=== PATIENT | female | born 1945 | race Caucasian/White ===

== ENCOUNTER 2022-09-23 00:17 | Inpatient (IN) | payer MEDICARE, MEDICAID, SELFPAY ==
--- NOTE | 2022-09-23 04:27 | PC.ADMIT ---
Patient is a 76 year old Bhutanese speaking female arriving on the unit by EMS at 0030 from [facility]. Legal status is Section 12b. Patient is a resident at in a [facility] care facility in [facility] where she has presented as increasingly agitated and confused over the past several days. Staff at the LT facility reported patient made statements regarding SI, although details of such statements were not available on admission. Patient was brought to [facility] for SI with increased confusion and concern for possible UTI. UA labs were normal with no evidence of UTI. Patient has history of dementia. On arrival patient presented as disorganized with nonsensical speech at times. Patient was agitated and refused VS and assessments; unable to participate in most of admission process due to current mental status.
[2022-09-23 08:29] VITALS: BP 170/79; PULSE 77; RESP 18; TEMP 36.6; O2SAT 97
--- NOTE | 2022-09-23 11:02 | PC.NURSE ---
BP 170/79, Jesusita is asymptomatic. Admit last night, med rec complete and Dr. Jett notified. Awaiting ordered. Dr. Jett notified of bp 170/79, will recheck and notify
--- NOTE | 2022-09-23 11:09 | P.CONHOSP_ITS ---
History of Present Illness Data of Consult Service Date: 09/23/22 Primary Care Provider: Unknown Physician HPI Reason for consult: Admission H&P Pt is a 76-year-old female with a PMH significant for HLD, HTN, and unspecified dementia who is admitted to [facility] for increasing agitation and confusion the past 2 days and making passive SI statements to staff at her SNF. Medical consult for admission H&P. Patient with advanced dementia at baseline. Patient incapable of providing HPI or discussing PMH. Labs reviewed, largely unremarkable. Review of Systems Review of Systems: Unable to obtain due to patient's advanced dementia. [facility] Medical History Dementia Social History Household Members: Other Household Members Other:: residents of nursing facility Housing: Jail Do you presently have visiting nurse or other home services: No (Residential care facility/[facility]) Unable to assess alcohol history related to: Unable to respond Patient Tobacco Use Status: Tobacco use Unknown Use of substances other than those prescribed or required for medical reasons: Unknown Substance Use Type: Unknown Currently Displaying Signs/Symptoms of Drug Intoxication Withdrawal: No Advance Directives: No Advance Directives Information Provided: Yes Do you have thoughts of harming others: None Do you have a plan to hurt others: No Plan Patient : No Meds Allergies Allergy/AdvReac Type Severity Reaction Status Date / Time hydrochlorothiazide Allergy Unknown Unknown Verified 09/23/22 01:46 Penicillins Allergy Unknown Unknown Verified 09/23/22 01:47 sulfamethoxazole Allergy Unknown Unknown Verified 09/23/22 01:44 [From Bactrim] trimethoprim [From Bactrim] Allergy Unknown Unknown Verified 09/23/22 01:44 Active Medications: Current Medications Acetaminophen (Acetaminophen 325 Mg Tablet) 650 mg PO Q6H PRN PRN Reason: Headache/Pain Mild Scale (1-3) Al Hydroxide/Mg Hydroxide (Magnesium Hydrox/Alum Hydrox 30 Ml Oral.Susp) 30 ml PO Q6H PRN PRN Reason: Heartburn/Nausea Magnesium Hydroxide (Milk Of Magnesia 30 Ml Oral.Susp) 30 ml PO DAILY PRN PRN Reason: Constipation Trazodone HCl (Trazodone Hcl 25 Mg Halftab) 25 mg PO BEDTIME MRX1 PRN PRN Reason: Insomnia Home Medications Medication Instructions Recorded Confirmed Last Taken Type atorvastatin 40 mg tablet 40 mg QPM 09/23/22 09/23/22 Unknown History furosemide 20 mg tablet 20 mg PO DAILY 09/23/22 09/23/22 Unknown History lorazepam 1 mg tablet 1 mg PO BEDTIME 09/23/22 09/23/22 Unknown History losartan 50 mg tablet 50 mg PO DAILY 09/23/22 09/23/22 Unknown History melatonin 3 mg tablet 9 mg PO BEDTIME 09/23/22 09/23/22 Unknown History quetiapine 100 mg tablet 100 mg PO BEDTIME 09/23/22 09/23/22 Unknown History quetiapine 50 mg tablet 50 mg PO DAILY 09/23/22 09/23/22 Unknown History trazodone 50 mg tablet 25 mg PO BEDTIME 09/23/22 09/23/22 Unknown History Physical Exam Vital Signs and Narrative: Vital Signs: Last Vital Signs Temp 97.8 F 09/23/22 08:29 Pulse 77 09/23/22 08:29 Resp 18 09/23/22 08:29 BP 170/79 H 09/23/22 08:29 Pulse Ox 97 09/23/22 08:29 O2 Del Method Room Air 09/23/22 08:29 General: AOx1, confused, mostly cooperative, capable of following basic commands, no acute distress Resp: CTA bilaterally CVS: S1, S2, RRR GI: +BS, NT, no distention Skin: No rash Neuro: Cranial nerves II-XII grossly intact bilaterally. Motor grossly intact bilaterally Extremities: No edema Psych: Patient with advanced dementia, emotionally labile Results Labs 09/24/22 07:08 Assessment and Plan (1) Routine history and physical examination of adult: Status: Acute Plan Pt is a 76-year-old female with a PMH significant for HLD, HTN, and unspecified dementia who is admitted to [facility] for increasing agitation and confusion the past 2 days and making passive SI statements to staff at her SNF. Medical consult for admission H&P. Patient with advanced dementia at baseline. Patient incapable of providing HPI or discussing PMH. Mood disorder Plan as per Psychiatry HLD Continue statin HTN Continue furosemide Thank you for allowing us to participate in the care of this patient. Signing off at this time. Please let us know if there are any acute complaints or questions. Time Spent With Patient Time: Total time managing care of this patient today ____ minutes.
[2022-09-23 11:15] VITALS: BMI 26.8
[2022-09-23 12:11] VITALS: BP 177/91
--- NOTE | 2022-09-23 12:36 | HO.PSYADMNOT ---
HPI Date of Service: 09/23/22 Chief Complaint: F32.9, R41.9 Sources of Information: patient interviewed, chart reviewed and crisis/core team assessment reviewed HPI Narrative: pt is a 76 yo female on a Section 12, who lives at the [facility] care facility with a history of dementia, depression and some history of suicidal gestures, CKD, GERD, osteoporosis, who presents for some increasing agitation, confusion and SI statements with staff reporting that patient is a little bit more inconsistent behaviorally and concern for UTI. Patient is a poor historian with limited ability to engage in interview. Patient knows her name and date of . However when asked what year it was she said 790 and then said there was no baby doll... When asked if she had any suicidal thoughts she said yes because they are good people.. Patient continued to ramble making nonsensical statements. Past Psychiatric History: Reported history of depression; reported history of suicidal gestures Medical Evaluation Reviewed: Hospitalist Mandyal Pending [facility] Medical History (Updated 09/23/22 @ 16:50 by Jay Jett MD) Dementia Family History: Mother: History of mental illness; by suicide attempt when patient was 10 years old Father: History of alcohol abuse Other mental illness in the family Social History: Currently lives at [facility] Patient's daughter Erin Joe provided some history Substance History: Deferred Trauma History: Daughter reports extensive history of trauma Diagnostics Vital Signs (24Hr): Vital Signs - 24 hr 09/23/22 08:29 09/23/22 12:11 Temperature 97.8 F Pulse Rate 77 Respiratory Rate 18 Blood Pressure 170/79 H 177/91 H Pulse Oximetry 97 Oxygen Delivery Method Room Air BMI result Body Mass Index 26.8 Meds/Allergies Meds Home Medications Medication Instructions Recorded Confirmed Type atorvastatin 40 mg tablet 40 mg QPM 09/23/22 09/23/22 History furosemide 20 mg tablet 20 mg PO DAILY 09/23/22 09/23/22 History lorazepam 1 mg tablet 1 mg PO BEDTIME 09/23/22 09/23/22 History losartan 50 mg tablet 50 mg PO DAILY 09/23/22 09/23/22 History melatonin 3 mg tablet 9 mg PO BEDTIME 09/23/22 09/23/22 History quetiapine 100 mg tablet 100 mg PO BEDTIME 09/23/22 09/23/22 History quetiapine 50 mg tablet 50 mg PO DAILY 09/23/22 09/23/22 History trazodone 50 mg tablet 25 mg PO BEDTIME 09/23/22 09/23/22 History Allergies Allergies Allergy/AdvReac Type Severity Reaction Status Date / Time hydrochlorothiazide Allergy Unknown Unknown Verified 09/23/22 01:46 Penicillins Allergy Unknown Unknown Verified 09/23/22 01:47 sulfamethoxazole Allergy Unknown Unknown Verified 09/23/22 01:44 [From Bactrim] trimethoprim [From Bactrim] Allergy Unknown Unknown Verified 09/23/22 01:44 Mental Status Exam Mental Status Exam Narrative: Pt is alert; oriented only to self; behavior is cooperative, friendly, chatty but calm; patient is not in distress; dressed in casual attire and adequately groomed; mood is described as good and affect calm; eye contact appropriate; Speech is rambling at mostly a normal rate, volume and prosody; no psychomotor agitation/retardation present; thought process is disorganized; Thought content is on what seem to be random, various unrelated topics; no clear SI or HI. Patients insight and judgment impaired Assessment & Plan Assessment & Plan (1) Dementia: Status: Acute Code(s): F03.90 - Unspecified dementia, unspecified severity, without behavioral disturbance, psychotic disturbance, mood disturbance, and anxiety Plan pt is a 76 yo female on a Section 12, who lives at the chronic care facility with a history of dementia, depression and some history of suicidal gestures, CKD, GERD, osteoporosis, who presents for some increasing agitation, confusion and SI statements with staff reporting that patient is a little bit more inconsistent behaviorally and concern for UTI. Patient is a poor historian with limited ability to engage in interview. Patient knows her name and date of . However when asked what year it was she said 790 and then said there was no baby doll... When asked if she had any suicidal thoughts she said yes because they are good people.. Patient continued to ramble making nonsensical statements. -patient has dementia and is unable to participate in interview and remains on Section 12 since unable to understand CV -story writer's not sure what patient's baseline is however review of labs from sending facility (CBC, lytes, BUN/creatinine, UDS) are WNL including UA. -primary team to discuss with [facility] staff Plan: Section 12 B Q 15 minute checks Continue home medications Will monitor Primary team to discuss baseline with [facility] staff Patient educated on: diagnosis Informed Consent: does not understand Reason for continued inpatient stay Substantial Risk for: inability to function Statement Statement: I have reviewed the history and physical and performed a pertinent examination on my patient. No changes have occurred unless specified. If the History and Physical was not performed prior to admission, the Hospitalist's service will be consulted for completing the admission physical. Time Spent With Patient Time: Total time managing care of this patient today ____ minutes.
[2022-09-23] MEDS: QUEtiapine Fumarate 50 MG TABLET PO (13:33)
[2022-09-23] MEDS: Losartan Potassium 50 MG TABLET PO (13:33)
[2022-09-23 14:23] VITALS: BP 155/79
[2022-09-23 19:45] VITALS: BP 159/78; PULSE 82; RESP 16; TEMP 36.6; O2SAT 98
[2022-09-23] MEDS: Melatonin 3 MG TABLET 9 MG PO ×2 (20:20→20:21)
[2022-09-23] MEDS: Atorvastatin Calcium 40 MG TABLET PO (20:21)
[2022-09-23] MEDS: QUEtiapine Fumarate 100 MG TABLET PO (20:21)
[2022-09-23] MEDS: traZODone HCL 25 MG HALFTAB PO (20:21)
[2022-09-23] MEDS: LORazepam 1 MG TABLET PO (20:23)
[2022-09-24 07:51] LABS: Alanine Aminotransferase 23 U/L (0-31); Albumin Level 3.5 g/dL (3.5-5.0); Alkaline Phosphatase 120 U/L (39-117); Aspartate Amino Transferase 24 U/L (5-31); Bilirubin Total 0.6 mg/dL (0.0-1.0); Blood Urea Nitrogen 22 mg/dL (9-16); Calcium 9.7 mg/dL (8.4-10.2); Cholesterol 132 mg/dL; Creatinine Clr Calc Pharmacy 44.6; Estimated Glomerular Filt Rate > 60; Glucose Fasting 93 mg/dL (60-99); HDL Cholesterol 35 mg/dL; LDL Cholesterol Calculated 90 mg/dl; Total Protein 6.2 g/dL (6.5-8.0); Triglycerides 39 mg/dL
[2022-09-24 07:56] LABS: Estimated Average Glucose 103 mg/dL; Hemoglobin A1c % 5.2 %
[2022-09-24 08:09] VITALS: BP 154/73; PULSE 88; RESP 18; TEMP 36.5; O2SAT 98
[2022-09-24 08:22] LABS: Anion Gap 9 (12-20); Carbon Dioxide 25 mmol/L (22-29); Chloride 110 mmol/L (96-108); Potassium 4.1 mmol/L (3.3-5.1); Sodium 140 mmol/L (135-145)
[2022-09-24] MEDS: Furosemide 20 MG TABLET PO (09:18)
[2022-09-24] MEDS: Losartan Potassium 50 MG TABLET PO (10:26)
[2022-09-24] MEDS: QUEtiapine Fumarate 50 MG TABLET PO (10:26)
--- NOTE | 2022-09-24 12:12 | HO.PSYCHPN ---
Subjective Subjective Date of Service: 09/24/22 Reason For Visit: F32.9, R41.9 Interim History: Met with patient; discussed with team Patient remains pleasant but disorganized and unable to participate in interview. Took medications with encouragement; slept well, eating well. Constipated. Mental Status Exam Mental Status Exam Narrative: Pt is alert; oriented only to self; behavior is cooperative, friendly, chatty but calm; patient is not in distress; dressed in casual attire and adequately groomed; mood is described as good and affect calm; eye contact appropriate; Speech is rambling at mostly a normal rate, volume and prosody; no psychomotor agitation/retardation present; thought process is disorganized; Thought content is on what seem to be random, various unrelated topics; no clear SI or HI. Patients insight and judgment impaired Diagnostics Vital Signs (24Hr): Vital Signs - 24 hr 09/23/22 14:23 09/23/22 19:45 09/24/22 08:09 Temperature 97.8 F 97.7 F Pulse Rate 82 88 Respiratory Rate 16 18 Blood Pressure 155/79 H 159/78 H 154/73 H Pulse Oximetry 98 98 Oxygen Delivery Method Room Air Room Air BMI result Body Mass Index 26.8 Labs 09/24/22 07:08 Labs: Laboratory Results - last 48 hr 09/24/22 09/24/22 07:08 07:08 Sodium 140 Potassium 4.1 Chloride 110 H Carbon Dioxide 25 Anion Gap 9 L BUN 22 H Creatinine 0.87 Estim Creat Clear Calc 44.6 Estimated GFR > 60 Fasting Glucose 93 Estimat Average Glucose 103 Hemoglobin A1c % 5.2 Calcium 9.7 Total Bilirubin 0.6 AST 24 ALT 23 Alkaline Phosphatase 120 H Total Protein 6.2 L Albumin 3.5 Triglycerides 39 Cholesterol 132 LDL Cholesterol, Calc 90 HDL Cholesterol 35 Medications Medications Current Medications Acetaminophen (Acetaminophen 325 Mg Tablet) 650 mg PO Q6H PRN PRN Reason: Headache/Pain Mild Scale (1-3) Al Hydroxide/Mg Hydroxide (Magnesium Hydrox/Alum Hydrox 30 Ml Oral.Susp) 30 ml PO Q6H PRN PRN Reason: Heartburn/Nausea Atorvastatin Calcium (Atorvastatin Calcium 40 Mg Tablet) 40 mg PO BEDTIME [facility] Last Admin: 09/23/22 20:21 Dose: 40 mg Furosemide (Furosemide 20 Mg Tablet) 20 mg PO DAILY [facility]; Protocol Last Admin: 09/24/22 09:18 Dose: 20 mg Lorazepam (Lorazepam 1 Mg Tablet) 1 mg PO BEDTIME [facility] Last Admin: 09/23/22 20:23 Dose: 1 mg Losartan Potassium (Losartan Potassium 50 Mg Tablet) 50 mg PO DAILY [facility]; Protocol Last Admin: 09/24/22 10:26 Dose: 50 mg Magnesium Hydroxide (Milk Of Magnesia 30 Ml Oral.Susp) 30 ml PO DAILY PRN PRN Reason: Constipation Melatonin (Melatonin 3 Mg Tablet) 9 mg PO BEDTIME [facility] Last Admin: 09/23/22 20:21 Dose: 9 mg Quetiapine Fumarate (Quetiapine Fumarate 100 Mg Tablet) 100 mg PO BEDTIME [facility] Last Admin: 09/23/22 20:21 Dose: 100 mg Quetiapine Fumarate (Quetiapine Fumarate 50 Mg Tablet) 50 mg PO DAILY [facility] Last Admin: 09/24/22 10:26 Dose: 50 mg Trazodone HCl (Trazodone Hcl 25 Mg Halftab) 25 mg PO BEDTIME [facility] Last Admin: 09/23/22 20:21 Dose: 25 mg Allergies Allergies Allergy/AdvReac Type Severity Reaction Status Date / Time hydrochlorothiazide Allergy Unknown Unknown Verified 09/23/22 01:46 Penicillins Allergy Unknown Unknown Verified 09/23/22 01:47 sulfamethoxazole Allergy Unknown Unknown Verified 09/23/22 01:44 [From Bactrim] trimethoprim [From Bactrim] Allergy Unknown Unknown Verified 09/23/22 01:44 Assessment & Plan Assessment & Plan (1) Dementia: Status: Acute Code(s): F03.90 - Unspecified dementia, unspecified severity, without behavioral disturbance, psychotic disturbance, mood disturbance, and anxiety Plan pt is a 76 yo female on a Section 12, who lives at the chronic care facility with a history of dementia, depression and some history of suicidal gestures, CKD, GERD, osteoporosis, who presents for some increasing agitation, confusion and SI statements with staff reporting that patient is a little bit more inconsistent behaviorally and concern for UTI.? Patient is a poor historian with limited ability to engage in interview.? Patient knows her name and date of .? However when asked what year it was she said 790 and then said there was no baby doll... When asked if she had any suicidal thoughts she said yes because they are good people.. Patient continued to ramble making nonsensical statements.? -patient has dementia and is unable to participate in interview and remains on Section 12 since unable to understand CV -typewriter aligner's not sure what patient's baseline is however review of labs from sending facility (CBC, lytes, BUN/creatinine, UDS) are WNL including UA. -primary team to discuss with snf staff Plan: Section 12 B Q 15 minute checks Continue home medications ADD Senna for constipation Will monitor Primary team to discuss baseline with snf staff Mood disorder Plan as per Psychiatry HLD Continue statin HTN Continue furosemide Reason for continued inpatient stay Substantial Risk for: inability to function Time Spent With Patient Time: Total time managing care of this patient today ____ minutes.
[2022-09-24 18:00] VITALS: BP 164/95; PULSE 84; RESP 18; TEMP 36.7; O2SAT 96
[2022-09-24] MEDS: LORazepam 1 MG TABLET PO (20:18)
[2022-09-24] MEDS: Atorvastatin Calcium 40 MG TABLET PO (20:18)
[2022-09-24] MEDS: Melatonin 3 MG TABLET 9 MG PO (20:19)
[2022-09-24] MEDS: QUEtiapine Fumarate 100 MG TABLET PO (20:19)
[2022-09-24] MEDS: traZODone HCL 25 MG HALFTAB PO (20:20)
[2022-09-25 09:32] VITALS: BP 178/89; PULSE 79; RESP 18; TEMP 36.1; O2SAT 97
[2022-09-25] MEDS: QUEtiapine Fumarate 50 MG TABLET PO (09:39)
[2022-09-25] MEDS: Sennosides/Docusate Sodium TABLET 1 TAB PO ×2 (09:39→20:34)
[2022-09-25] MEDS: Furosemide 20 MG TABLET PO (09:39)
[2022-09-25] MEDS: Losartan Potassium 50 MG TABLET PO (09:39)
--- NOTE | 2022-09-25 11:58 | HO.PSYCHPN ---
Subjective Subjective Date of Service: 09/25/22 Reason For Visit: F32.9, R41.9 Interim History: The nursing staff reported the patient had been compliant with medications she slept 8 hours but she remains confused nonsensical at times. On interview the patient was pleasantly confused but unable to follow the conversation since she was very confused. Also, she was nonsensical. Mental Status Exam Mental Status Exam Patient Appearance: Appropriate Patient Orientation: Person and Situation Level of Consciousness: Awake and Appropriate Patient Behavior: Cooperative Mood Description: Calm Affect Description: Constricted Patient Cognition Impaired: Yes Ability to Follow Directions: Good Speech Pattern: Clear Hallucinations: None Delusions: Paranoid Ideation Thought Process: Incoherent and Illogical Thought Content: positive for [place], positive for Poverty of Content and positive for Incoherent Judgement: Fair Diagnostics Vital Signs (24Hr): Vital Signs - 24 hr 09/24/22 18:00 09/25/22 09:32 Temperature 98.1 F 97.0 F Pulse Rate 84 79 Respiratory Rate 18 18 Blood Pressure 164/95 H 178/89 H Pulse Oximetry 96 97 Oxygen Delivery Method Room Air Room Air BMI result Body Mass Index 26.8 Labs 09/24/22 07:08 Labs: Laboratory Results - last 48 hr 09/24/22 09/24/22 07:08 07:08 Sodium 140 Potassium 4.1 Chloride 110 H Carbon Dioxide 25 Anion Gap 9 L BUN 22 H Creatinine 0.87 Estim Creat Clear Calc 44.6 Estimated GFR > 60 Fasting Glucose 93 Estimat Average Glucose 103 Hemoglobin A1c % 5.2 Calcium 9.7 Total Bilirubin 0.6 AST 24 ALT 23 Alkaline Phosphatase 120 H Total Protein 6.2 L Albumin 3.5 Triglycerides 39 Cholesterol 132 LDL Cholesterol, Calc 90 HDL Cholesterol 35 Medications Medications Current Medications Acetaminophen (Acetaminophen 325 Mg Tablet) 650 mg PO Q6H PRN PRN Reason: Headache/Pain Mild Scale (1-3) Al Hydroxide/Mg Hydroxide (Magnesium Hydrox/Alum Hydrox 30 Ml Oral.Susp) 30 ml PO Q6H PRN PRN Reason: Heartburn/Nausea Atorvastatin Calcium (Atorvastatin Calcium 40 Mg Tablet) 40 mg PO BEDTIME [facility] Last Admin: 09/24/22 20:18 Dose: 40 mg Furosemide (Furosemide 20 Mg Tablet) 20 mg PO DAILY [facility]; Protocol Last Admin: 09/25/22 09:39 Dose: 20 mg Lorazepam (Lorazepam 1 Mg Tablet) 1 mg PO BEDTIME [facility] Last Admin: 09/24/22 20:18 Dose: 1 mg Losartan Potassium (Losartan Potassium 50 Mg Tablet) 50 mg PO DAILY [facility]; Protocol Last Admin: 09/25/22 09:39 Dose: 50 mg Magnesium Hydroxide (Milk Of Magnesia 30 Ml Oral.Susp) 30 ml PO DAILY PRN PRN Reason: Constipation Melatonin (Melatonin 3 Mg Tablet) 9 mg PO BEDTIME [facility] Last Admin: 09/24/22 20:19 Dose: 9 mg Quetiapine Fumarate (Quetiapine Fumarate 100 Mg Tablet) 100 mg PO BEDTIME [facility] Last Admin: 09/24/22 20:19 Dose: 100 mg Quetiapine Fumarate (Quetiapine Fumarate 50 Mg Tablet) 50 mg PO DAILY [facility] Last Admin: 09/25/22 09:39 Dose: 50 mg Senna/Docusate Sodium (Sennosides/Docusate Sodium Tablet) 1 tab PO BID [facility] Last Admin: 09/25/22 09:39 Dose: 1 tab Trazodone HCl (Trazodone Hcl 25 Mg Halftab) 25 mg PO BEDTIME [facility] Last Admin: 09/24/22 20:20 Dose: 25 mg Allergies Allergies Allergy/AdvReac Type Severity Reaction Status Date / Time hydrochlorothiazide Allergy Unknown Unknown Verified 09/23/22 01:46 Penicillins Allergy Unknown Unknown Verified 09/23/22 01:47 sulfamethoxazole Allergy Unknown Unknown Verified 09/23/22 01:44 [From Bactrim] trimethoprim [From Bactrim] Allergy Unknown Unknown Verified 09/23/22 01:44 Assessment & Plan Assessment & Plan (1) Dementia: Status: Acute Code(s): F03.90 - Unspecified dementia, unspecified severity, without behavioral disturbance, psychotic disturbance, mood disturbance, and anxiety Plan pt is a 76 yo female on a Section 12, who lives at the chronic care facility with a history of dementia, depression and some history of suicidal gestures, CKD, GERD, osteoporosis, who presents for some increasing agitation, confusion and SI statements with staff reporting that patient is a little bit more inconsistent behaviorally and concern for UTI.? Patient is a poor historian with limited ability to engage in interview.? Patient knows her name and date of .? However when asked what year it was she said 790 and then said there was no baby doll... When asked if she had any suicidal thoughts she said yes because they are good people.. Patient continued to ramble making nonsensical statements.? -patient has dementia and is unable to participate in interview and remains on Section 12 since unable to understand CV -senior writer's not sure what patient's baseline is however review of labs from sending facility (CBC, lytes, BUN/creatinine, UDS) are WNL including UA. -primary team to discuss with shelter staff Plan: Section 12 B Q 15 minute checks Continue home medications ADD Senna for constipation Will monitor Primary team to discuss baseline with shelter staff Mood disorder Plan as per Psychiatry HLD Continue statin HTN Continue furosemide Plan 1. Continue Seroquel 50 q.a.m. and 1 high p.o. q.h.s.. 2. Continue with her regular medications. 3. Gather collateral information. Reason for continued inpatient stay Substantial Risk for: inability to function, rapid decompensation and med/psych decompensation Time Spent With Patient Time: Total time managing care of this patient today _20___ minutes.
[2022-09-25 18:00] VITALS: BP 110/60; PULSE 81; RESP 20; TEMP 36; O2SAT 92
[2022-09-25] MEDS: LORazepam 1 MG TABLET PO (20:34)
[2022-09-25] MEDS: Atorvastatin Calcium 40 MG TABLET PO (20:34)
[2022-09-25] MEDS: QUEtiapine Fumarate 100 MG TABLET PO (20:34)
[2022-09-25] MEDS: traZODone HCL 25 MG HALFTAB PO (20:35)
[2022-09-25] MEDS: Melatonin 3 MG TABLET 9 MG PO (20:35)
[2022-09-26 10:25] VITALS: BP 153/64; PULSE 63; RESP 18; TEMP 36.1; O2SAT 99
[2022-09-26] MEDS: Furosemide 20 MG TABLET PO (10:27)
[2022-09-26] MEDS: QUEtiapine Fumarate 50 MG TABLET PO (10:27)
[2022-09-26] MEDS: Sennosides/Docusate Sodium TABLET 1 TAB PO ×2 (10:27→20:25)
[2022-09-26] MEDS: Losartan Potassium 50 MG TABLET PO (10:28)
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
[2022-09-26] MEDS: Milk of Magnesia 30 ML ORAL.SUSP PO (17:10)
[2022-09-26 20:00] VITALS: BP 138/78; PULSE 77; RESP 18; TEMP 36.6; O2SAT 95
[2022-09-26] MEDS: QUEtiapine Fumarate 100 MG TABLET PO (20:25)
[2022-09-26] MEDS: traZODone HCL 25 MG HALFTAB PO (20:25)
[2022-09-26] MEDS: LORazepam 1 MG TABLET PO (20:25)
[2022-09-26] MEDS: Atorvastatin Calcium 40 MG TABLET PO (20:25)
[2022-09-26] MEDS: Melatonin 3 MG TABLET 9 MG PO (20:25)
[2022-09-27 08:00] VITALS: BP 195/95; PULSE 73; RESP 18; TEMP 36.3; O2SAT 97
[2022-09-27] MEDS: QUEtiapine Fumarate 50 MG TABLET PO (08:06)
[2022-09-27] MEDS: Losartan Potassium 50 MG TABLET PO (08:06)
[2022-09-27] MEDS: Furosemide 20 MG TABLET PO (08:06)
[2022-09-27] MEDS: Sennosides/Docusate Sodium TABLET 1 TAB PO ×2 (08:06→21:11)
[2022-09-27 10:00] VITALS: BP 148/92; PULSE 80; RESP 18; TEMP 36.3; O2SAT 97
--- NOTE | 2022-09-27 13:46 | P.PNPSI_ITS ---
Subjective Subjective Date of Service: 09/27/22 Reason For Visit: F32.9, R41.9 Subjective Notes: Conditional Voluntary Interim History: The nursing staff reported the patient has been taking her medications, apparently he trying to cheek her medications yesterday. She receive p.r.n. for constipation. She has been very labile and sad at times. She is in a community role years at this moment and she is unable to sign herself in a CVA. On interview the patient denies new symptoms she looks pleasantly confused. Mental Status Exam Mental Status Exam Patient Appearance: Appropriate Patient Orientation: Person and Situation Level of Consciousness: Awake Patient Behavior: Guarded and Passive Mood Description: Withdrawn Affect Description: Constricted Patient Cognition Impaired: Yes Ability to Follow Directions: Good Speech Pattern: Clear Hallucinations: None Delusions: Paranoid Ideation Thought Process: Distracted and Slowed Thinking Thought Content: positive for [place] and positive for Poverty of Content Judgement: Fair Diagnostics Vital Signs (24Hr): Vital Signs - 24 hr 09/26/22 20:00 09/27/22 08:00 09/27/22 10:00 Temperature 97.8 F 97.4 F 97.4 F Pulse Rate 77 73 80 Respiratory Rate 18 18 18 Blood Pressure 138/78 195/95 H 148/92 H Pulse Oximetry 95 97 97 Oxygen Delivery Method Room Air Room Air Room Air BMI result Body Mass Index 26.8 Labs 09/24/22 07:08 Medications Medications Current Medications Acetaminophen (Acetaminophen 325 Mg Tablet) 650 mg PO Q6H PRN PRN Reason: Headache/Pain Mild Scale (1-3) Al Hydroxide/Mg Hydroxide (Magnesium Hydrox/Alum Hydrox 30 Ml Oral.Susp) 30 ml PO Q6H PRN PRN Reason: Heartburn/Nausea Atorvastatin Calcium (Atorvastatin Calcium 40 Mg Tablet) 40 mg PO BEDTIME [facility] Last Admin: 09/26/22 20:25 Dose: 40 mg Furosemide (Furosemide 20 Mg Tablet) 20 mg PO DAILY [facility]; Protocol Last Admin: 09/27/22 08:06 Dose: 20 mg Lorazepam (Lorazepam 1 Mg Tablet) 1 mg PO BEDTIME [facility] Last Admin: 09/26/22 20:25 Dose: 1 mg Losartan Potassium (Losartan Potassium 50 Mg Tablet) 50 mg PO DAILY [facility]; Protocol Last Admin: 09/27/22 08:06 Dose: 50 mg Magnesium Hydroxide (Milk Of Magnesia 30 Ml Oral.Susp) 30 ml PO DAILY PRN PRN Reason: Constipation Last Admin: 09/26/22 17:10 Dose: 30 ml Melatonin (Melatonin 3 Mg Tablet) 9 mg PO BEDTIME [facility] Last Admin: 09/26/22 20:25 Dose: 9 mg Quetiapine Fumarate (Quetiapine Fumarate 100 Mg Tablet) 100 mg PO BEDTIME [facility] Last Admin: 09/26/22 20:25 Dose: 100 mg Quetiapine Fumarate (Quetiapine Fumarate 50 Mg Tablet) 50 mg PO BID@0830,1630 [facility] Senna/Docusate Sodium (Sennosides/Docusate Sodium Tablet) 1 tab PO BID [facility] Last Admin: 09/27/22 08:06 Dose: 1 tab Trazodone HCl (Trazodone Hcl 25 Mg Halftab) 25 mg PO BEDTIME [facility] Last Admin: 09/26/22 20:25 Dose: 25 mg Allergies Allergies Allergy/AdvReac Type Severity Reaction Status Date / Time hydrochlorothiazide Allergy Unknown Unknown Verified 09/23/22 01:46 Penicillins Allergy Unknown Unknown Verified 09/23/22 01:47 sulfamethoxazole Allergy Unknown Unknown Verified 09/23/22 01:44 [From Bactrim] trimethoprim [From Bactrim] Allergy Unknown Unknown Verified 09/23/22 01:44 Assessment & Plan Assessment & Plan (1) Dementia: Status: Acute Code(s): F03.90 - Unspecified dementia, unspecified severity, without behavioral disturbance, psychotic disturbance, mood disturbance, and anxiety Plan pt is a 76 yo female on a Section 12, who lives at the chronic care facility with a history of dementia, depression and some history of suicidal gestures, CKD, GERD, osteoporosis, who presents for some increasing agitation, confusion and SI statements with staff reporting that patient is a little bit more i nconsistent behaviorally and concern for UTI.? Patient is a poor historian with limited ability to engage in interview.? Patient knows her name and date of .? However when asked what year it was she said 790 and then said there was no baby doll... When asked if she had any suicidal thoughts she said yes because they are good people.. Patient continued to ramble making nonsensical statements.? -patient has dementia and is unable to participate in interview and remains on Section 12 since unable to understand CV -data analyst report writer's not sure what patient's baseline is however review of labs from sending facility (CBC, lytes, BUN/creatinine, UDS) are WNL including UA. -primary team to discuss with shelter staff Plan: Section 12 B Q 15 minute checks Continue home medications ADD Senna for constipation Will monitor Primary team to discuss baseline with shelter staff Mood disorder Plan as per Psychiatry HLD Continue statin HTN Continue furosemide Plan 1. Continue Seroquel 50 q.a.m. and 1 high p.o. q.h.s.. On 09/27 we increase Seroquel to 50 p.o. b.i.d. and 100 mg p.o. q.h.s. to target psychosis. 2. Continue with her regular medications. 3. Gather collateral information. Reason for continued inpatient stay Substantial Risk for: inability to function, rapid decompensation and med/psych decompensation Time Spent With Patient Time: Total time managing care of this patient today __20__ minutes.
[2022-09-27 18:00] VITALS: BP 157/88; PULSE 88; RESP 18; TEMP 36.6; O2SAT 95
[2022-09-27] MEDS: traZODone HCL 25 MG HALFTAB PO (21:11)
[2022-09-27] MEDS: LORazepam 1 MG TABLET PO (21:11)
[2022-09-27] MEDS: Atorvastatin Calcium 40 MG TABLET PO (21:11)
[2022-09-27] MEDS: Melatonin 3 MG TABLET 9 MG PO (21:11)
[2022-09-27] MEDS: QUEtiapine Fumarate 100 MG TABLET PO (21:11)
[2022-09-28 07:00] VITALS: BMI 27.1
[2022-09-28 07:30] VITALS: PULSE 91; TEMP 36.7
[2022-09-28] MEDS: Furosemide 20 MG TABLET PO (09:37)
[2022-09-28] MEDS: QUEtiapine Fumarate 50 MG TABLET PO ×2 (09:38→16:32)
[2022-09-28] MEDS: Sennosides/Docusate Sodium TABLET 1 TAB PO ×2 (09:38→21:10)
[2022-09-28] MEDS: Losartan Potassium 50 MG TABLET PO (09:38)
[2022-09-28 09:58] VITALS: BP 138/66; PULSE 82; RESP 16; TEMP 36.7
--- NOTE | 2022-09-28 15:15 | HO.PSYCHPN ---
Subjective Subjective Date of Service: 09/28/22 Reason For Visit: F32.9, R41.9 Subjective Notes: Section 7 and Section 8 Interim History: The nursing staff reported the patient is on one-to-one. She had been extremely confused, unable to sign CV due to her level of confusion and poor mental status. We are going to filed for Section 7 and 8. The patient has a court order for antipsychotics. On interview the patient reported that she is doing fine but she is Very confused nonsensical. Mental Status Exam Mental Status Exam Patient Appearance: Appropriate Patient Orientation: Person and Situation Level of Consciousness: Awake and Appropriate Patient Behavior: Guarded and Passive Mood Description: Calm Affect Description: Constricted Patient Cognition Impaired: Yes Ability to Follow Directions: Fair Speech Pattern: Clear, Impoverished and Monotone Hallucinations: None Delusions: Paranoid Ideation Thought Process: Incoherent and Illogical Thought Content: positive for Loose Associ[place] and positive for Incoherent Judgement: Poor Diagnostics Vital Signs (24Hr): Vital Signs - 24 hr 09/27/22 18:00 09/28/22 07:30 09/28/22 09:58 Temperature 98 F 98.1 F 98.1 F Pulse Rate 88 91 82 Respiratory Rate 18 16 Blood Pressure 157/88 H 138/66 Pulse Oximetry 95 Oxygen Delivery Method Room Air BMI result Body Mass Index 27.1 Labs 09/24/22 07:08 Medications Medications Current Medications Acetaminophen (Acetaminophen 325 Mg Tablet) 650 mg PO Q6H PRN PRN Reason: Headache/Pain Mild Scale (1-3) Al Hydroxide/Mg Hydroxide (Magnesium Hydrox/Alum Hydrox 30 Ml Oral.Susp) 30 ml PO Q6H PRN PRN Reason: Heartburn/Nausea Atorvastatin Calcium (Atorvastatin Calcium 40 Mg Tablet) 40 mg PO BEDTIME [facility] Last Admin: 09/27/22 21:11 Dose: 40 mg Furosemide (Furosemide 20 Mg Tablet) 20 mg PO DAILY [facility]; Protocol Last Admin: 09/28/22 09:37 Dose: 20 mg Lorazepam (Lorazepam 1 Mg Tablet) 1 mg PO BEDTIME [facility] Last Admin: 09/27/22 21:11 Dose: 1 mg Losartan Potassium (Losartan Potassium 50 Mg Tablet) 50 mg PO DAILY [facility]; Protocol Last Admin: 09/28/22 09:38 Dose: 50 mg Magnesium Hydroxide (Milk Of Magnesia 30 Ml Oral.Susp) 30 ml PO DAILY PRN PRN Reason: Constipation Last Admin: 09/26/22 17:10 Dose: 30 ml Melatonin (Melatonin 3 Mg Tablet) 9 mg PO BEDTIME [facility] Last Admin: 09/27/22 21:11 Dose: 9 mg Quetiapine Fumarate (Quetiapine Fumarate 100 Mg Tablet) 100 mg PO BEDTIME [facility] Last Admin: 09/27/22 21:11 Dose: 100 mg Quetiapine Fumarate (Quetiapine Fumarate 50 Mg Tablet) 50 mg PO BID@0830,1630 [facility] Last Admin: 09/28/22 09:38 Dose: 50 mg Senna/Docusate Sodium (Sennosides/Docusate Sodium Tablet) 1 tab PO BID [facility] Last Admin: 09/28/22 09:38 Dose: 1 tab Trazodone HCl (Trazodone Hcl 25 Mg Halftab) 25 mg PO BEDTIME [facility] Last Admin: 09/27/22 21:11 Dose: 25 mg Allergies Allergies Allergy/AdvReac Type Severity Reaction Status Date / Time hydrochlorothiazide Allergy Unknown Unknown Verified 09/23/22 01:46 Penicillins Allergy Unknown Unknown Verified 09/23/22 01:47 sulfamethoxazole Allergy Unknown Unknown Verified 09/23/22 01:44 [From Bactrim] trimethoprim [From Bactrim] Allergy Unknown Unknown Verified 09/23/22 01:44 Assessment & Plan Assessment & Plan (1) Dementia: Status: Acute Code(s): F03.90 - Unspecified dementia, unspecified severity, without behavioral disturbance, psychotic disturbance, mood disturbance, and anxiety Plan pt is a 76 yo female on a Section 12, who lives at the chronic care facility with a history of dementia, depression and some history of suicidal gestures, CKD, GERD, osteoporosis, who presents for some increasing agitation, confusion and SI statements with staff reporting that patient is a little bit more inconsistent behaviorally and concern for UTI.? Patient is a poor historian with limited ability to engage in interview.? Patient knows her name and date of .? However when asked what year it was she said 790 and then said there was no baby doll... When asked if she had any suicidal thoughts she said yes because they are good people.. Patient continued to ramble making nonsensical statements.? -patient has dementia and is unable to participate in interview and remains on Section 12 since unable to understand CV -selling underwriter's not sure what patient's baseline is however review of labs from sending facility (CBC, lytes, BUN/creatinine, UDS) are WNL including UA. -primary team to discuss with senior living staff Plan: Section 12 B Q 15 minute checks Continue home medications ADD Senna for constipation Will monitor Primary team to discuss baseline with senior living staff Mood disorder Plan as per Psychiatry HLD Continue statin HTN Continue furosemide Plan 1. Continue Seroquel 50 q.a.m. and 1 high p.o. q.h.s.. On 09/27 we increase Seroquel to 50 p.o. b.i.d. and 100 mg p.o. q.h.s. to target psychosis. 2. Continue with her regular medications. 3. Gather collateral information. 4. Filing for Section 7 and 8. Reason for continued inpatient stay Substantial Risk for: inability to function, rapid decompensation and med/psych decompensation Time Spent With Patient Time: Total time managing care of this patient today _20___ minutes.
[2022-09-28 18:00] VITALS: BP 152/78; PULSE 84; RESP 18; TEMP 36.4; O2SAT 100
[2022-09-28] MEDS: Melatonin 3 MG TABLET 9 MG PO (21:10)
[2022-09-28] MEDS: QUEtiapine Fumarate 100 MG TABLET PO (21:10)
[2022-09-28] MEDS: Atorvastatin Calcium 40 MG TABLET PO (21:10)
[2022-09-28] MEDS: LORazepam 1 MG TABLET PO (21:11)
[2022-09-28] MEDS: traZODone HCL 25 MG HALFTAB PO (21:11)
[2022-09-29 08:00] VITALS: BP 185/82; PULSE 73; RESP 16; TEMP 36.4; O2SAT 97
[2022-09-29] MEDS: Losartan Potassium 50 MG TABLET PO (08:39)
[2022-09-29] MEDS: Furosemide 20 MG TABLET PO (08:41)
[2022-09-29] MEDS: QUEtiapine Fumarate 50 MG TABLET PO ×2 (08:41→16:12)
[2022-09-29] MEDS: Sennosides/Docusate Sodium TABLET 1 TAB PO ×2 (08:45→21:10)
--- NOTE | 2022-09-29 12:25 | P.PNPSI_ITS ---
Subjective Subjective Date of Service: 09/29/22 Reason For Visit: F32.9, R41.9 Subjective Notes: Conditional Voluntary Interim History: The nursing staff reported the patient had been profoundly confused and demented, she has a guardian a role years order and we filing for Section 7 and 8 since she cannot sign herself in. The occupational therapist reported that she is very impulsive and she is a fall risk. On interview the patient is nonsensical but easily redirectable, no evidence of agitation or violence. The social psychologist reported that she can go back to the [facility] in [facility]. Mental Status Exam Mental Status Exam Patient Appearance: Well Grooomed and Appropriate Patient Orientation: Person and Situation Level of Consciousness: Awake and Appropriate Patient Behavior: Guarded and Passive Mood Description: Suspicious Affect Description: Constricted Patient Cognition Impaired: Yes Ability to Follow Directions: Good Speech Pattern: Clear Hallucinations: None Delusions: Not Present Thought Process: Distracted Thought Content: positive for [place] and positive for Poverty of Content Judgement: Fair Diagnostics Vital Signs (24Hr): Vital Signs - 24 hr 09/28/22 18:00 09/29/22 08:00 Temperature 97.5 F 97.6 F Pulse Rate 84 73 Respiratory Rate 18 16 Blood Pressure 152/78 H 185/82 H Pulse Oximetry 100 97 Oxygen Delivery Method Room Air Room Air BMI result Body Mass Index 27.1 Labs 09/24/22 07:08 Medications Medications Current Medications Acetaminophen (Acetaminophen 325 Mg Tablet) 650 mg PO Q6H PRN PRN Reason: Headache/Pain Mild Scale (1-3) Al Hydroxide/Mg Hydroxide (Magnesium Hydrox/Alum Hydrox 30 Ml Oral.Susp) 30 ml PO Q6H PRN PRN Reason: Heartburn/Nausea Atorvastatin Calcium (Atorvastatin Calcium 40 Mg Tablet) 40 mg PO BEDTIME [facility] Last Admin: 09/28/22 21:10 Dose: 40 mg Furosemide (Furosemide 20 Mg Tablet) 20 mg PO DAILY [facility]; Protocol Last Admin: 09/29/22 08:41 Dose: 20 mg Lorazepam (Lorazepam 1 Mg Tablet) 1 mg PO BEDTIME [facility] Last Admin: 09/28/22 21:11 Dose: 1 mg Losartan Potassium (Losartan Potassium 50 Mg Tablet) 50 mg PO DAILY [facility]; Protocol Last Admin: 09/29/22 08:39 Dose: 50 mg Magnesium Hydroxide (Milk Of Magnesia 30 Ml Oral.Susp) 30 ml PO DAILY PRN PRN Reason: Constipation Last Admin: 09/26/22 17:10 Dose: 30 ml Melatonin (Melatonin 3 Mg Tablet) 9 mg PO BEDTIME [facility] Last Admin: 09/28/22 21:10 Dose: 9 mg Quetiapine Fumarate (Quetiapine Fumarate 100 Mg Tablet) 100 mg PO BEDTIME [facility] Last Admin: 09/28/22 21:10 Dose: 100 mg Quetiapine Fumarate (Quetiapine Fumarate 50 Mg Tablet) 50 mg PO BID@0830,1630 [facility] Last Admin: 09/29/22 08:41 Dose: 50 mg Senna/Docusate Sodium (Sennosides/Docusate Sodium Tablet) 1 tab PO BID [facility] Last Admin: 09/29/22 08:45 Dose: 1 tab Trazodone HCl (Trazodone Hcl 25 Mg Halftab) 25 mg PO BEDTIME [facility] Last Admin: 09/28/22 21:11 Dose: 25 mg Allergies Allergies Allergy/AdvReac Type Severity Reaction Status Date / Time hydrochlorothiazide Allergy Unknown Unknown Verified 09/23/22 01:46 Penicillins Allergy Unknown Unknown Verified 09/23/22 01:47 sulfamethoxazole Allergy Unknown Unknown Verified 09/23/22 01:44 [From Bactrim] trimethoprim [From Bactrim] Allergy Unknown Unknown Verified 09/23/22 01:44 Assessment & Plan Assessment & Plan (1) Dementia: Status: Acute Code(s): F03.90 - Unspecified dementia, unspecified severity, without behavioral disturbance, psychotic disturbance, mood disturbance, and anxiety Plan pt is a 76 yo female on a Section 12, who lives at the chronic care facility with a history of dementia, depression and some history of suicidal gestures, CKD, GERD, osteoporosis, who presents for some increasing agitation, confusion and SI statements with staff reporting that patient is a little bit more inc onsistent behaviorally and concern for UTI.? Patient is a poor historian with limited ability to engage in interview.? Patient knows her name and date of .? However when asked what year it was she said 790 and then said there was no baby doll... When asked if she had any suicidal thoughts she said yes because they are good people.. Patient continued to ramble making nonsensical statements.? -patient has dementia and is unable to participate in interview and remains on Section 12 since unable to understand CV -commercial lines underwriter's not sure what patient's baseline is however review of labs from sending facility (CBC, lytes, BUN/creatinine, UDS) are WNL including UA. -primary team to discuss with custodial staff Plan: Section 12 B Q 15 minute checks Continue home medications ADD Senna for constipation Will monitor Primary team to discuss baseline with custodial staff Mood disorder Plan as per Psychiatry HLD Continue statin HTN Continue furosemide Plan 1. Continue Seroquel 50 q.a.m. and 1 high p.o. q.h.s.. On 09/27 we increase Seroquel to 50 p.o. b.i.d. and 100 mg p.o. q.h.s. to target psychosis. 2. Continue with her regular medications. 3. Gather collateral information. 4. Filing for Section 7 and 8. Reason for continued inpatient stay Substantial Risk for: inability to function, rapid decompensation and med/psych decompensation Time Spent With Patient Time: Total time managing care of this patient today _20___ minutes.
[2022-09-29] MEDS: Acetaminophen 325 MG TABLET 650 MG PO (16:12)
[2022-09-29] MEDS: LORazepam 1 MG TABLET PO (21:09)
[2022-09-29] MEDS: Melatonin 3 MG TABLET 9 MG PO (21:09)
[2022-09-29] MEDS: QUEtiapine Fumarate 100 MG TABLET PO (21:10)
[2022-09-29] MEDS: traZODone HCL 25 MG HALFTAB PO (21:10)
[2022-09-29] MEDS: Atorvastatin Calcium 40 MG TABLET PO (21:10)
[2022-09-30] MEDS: QUEtiapine Fumarate 50 MG TABLET PO ×2 (09:31→16:36)
[2022-09-30] MEDS: Sennosides/Docusate Sodium TABLET 1 TAB PO ×2 (09:31→20:09)
--- NOTE | 2022-09-30 11:37 | HO.PSYCHPN ---
Subjective Subjective Date of Service: 09/30/22 Reason For Visit: F32.9, R41.9 Interim History: pleasantly tangential/disorganized. no requests or complaints. per staff, refused VS. sleeping and eating. no issues. Mental Status Exam Mental Status Exam Patient Appearance: Well Grooomed and Appropriate Patient Orientation: Person and Situation Level of Consciousness: Awake and Appropriate Patient Behavior: Guarded and Passive Mood Description: Suspicious Affect Description: Constricted Patient Cognition Impaired: Yes Ability to Follow Directions: Good Speech Pattern: Clear Hallucinations: None Delusions: Not Present Thought Process: Distracted Thought Content: positive for [place] and positive for Poverty of Content Judgement: Fair Diagnostics Vital Signs (24Hr): BMI result Body Mass Index 27.1 Labs 09/24/22 07:08 Medications Medications Current Medications Acetaminophen (Acetaminophen 325 Mg Tablet) 650 mg PO Q6H PRN PRN Reason: Headache/Pain Mild Scale (1-3) Last Admin: 09/29/22 16:12 Dose: 650 mg Al Hydroxide/Mg Hydroxide (Magnesium Hydrox/Alum Hydrox 30 Ml Oral.Susp) 30 ml PO Q6H PRN PRN Reason: Heartburn/Nausea Atorvastatin Calcium (Atorvastatin Calcium 40 Mg Tablet) 40 mg PO BEDTIME [facility] Last Admin: 09/29/22 21:10 Dose: 40 mg Furosemide (Furosemide 20 Mg Tablet) 20 mg PO DAILY [facility]; Protocol Last Admin: 09/30/22 09:33 Dose: Not Given Lorazepam (Lorazepam 1 Mg Tablet) 1 mg PO BEDTIME [facility] Last Admin: 09/29/22 21:09 Dose: 1 mg Losartan Potassium (Losartan Potassium 50 Mg Tablet) 50 mg PO DAILY [facility]; Protocol Last Admin: 09/30/22 09:34 Dose: Not Given Magnesium Hydroxide (Milk Of Magnesia 30 Ml Oral.Susp) 30 ml PO DAILY PRN PRN Reason: Constipation Last Admin: 09/26/22 17:10 Dose: 30 ml Melatonin (Melatonin 3 Mg Tablet) 9 mg PO BEDTIME [facility] Last Admin: 09/29/22 21:09 Dose: 9 mg Quetiapine Fumarate (Quetiapine Fumarate 100 Mg Tablet) 100 mg PO BEDTIME [facility] Last Admin: 09/29/22 21:10 Dose: 100 mg Quetiapine Fumarate (Quetiapine Fumarate 50 Mg Tablet) 50 mg PO BID@0830,1630 [facility] Last Admin: 09/30/22 09:31 Dose: 50 mg Senna/Docusate Sodium (Sennosides/Docusate Sodium Tablet) 1 tab PO BID [facility] Last Admin: 09/30/22 09:31 Dose: 1 tab Trazodone HCl (Trazodone Hcl 25 Mg Halftab) 25 mg PO BEDTIME [facility] Last Admin: 09/29/22 21:10 Dose: 25 mg Allergies Allergies Allergy/AdvReac Type Severity Reaction Status Date / Time hydrochlorothiazide Allergy Unknown Unknown Verified 09/23/22 01:46 Penicillins Allergy Unknown Unknown Verified 09/23/22 01:47 sulfamethoxazole Allergy Unknown Unknown Verified 09/23/22 01:44 [From Bactrim] trimethoprim [From Bactrim] Allergy Unknown Unknown Verified 09/23/22 01:44 Assessment & Plan Assessment & Plan (1) Dementia: Status: Acute Code(s): F03.90 - Unspecified dementia, unspecified severity, without behavioral disturbance, psychotic disturbance, mood disturbance, and anxiety Plan pt is a 76 yo female on a Section 12, who lives at the chronic care facility with a history of dementia, depression and some history of suicidal gestures, CKD, GERD, osteoporosis, who presents for some increasing agitation, confusion and SI statements with staff reporting that patient is a little bit more inconsistent behaviorally and concern for UTI.? Patient is a poor historian with limited ability to engage in interview.? Patient knows her name and date of .? However when asked what year it was she said 790 and then said there was no baby doll... When asked if she had any suicidal thoughts she said yes because they are good people.. Patient continued to ramble making nonsensical statements.? -patient has dementia and is unable to participate in interview and remains on Section 12 since unable to understand CV -health underwriter's not sure what patient's baseline is however review of labs from sending facility (CBC, lytes, BUN/creatinine, UDS) are WNL including UA. -primary team to discuss with fpc staff Plan: Section 12 B Q 15 minute checks Continue home medications ADD Senna for constipation Will monitor Primary team to discuss baseline with fpc staff Mood disorder Plan as per Psychiatry HLD Continue statin HTN Continue furosemide Plan 1. Continue Seroquel 50 q.a.m. and 1 high p.o. q.h.s.. On 09/27 we increase Seroquel to 50 p.o. b.i.d. and 100 mg p.o. q.h.s. to target psychosis. 2. Continue with her regular medications. 3. Gather collateral information. 4. Filing for Section 7 and 8. Reason for continued inpatient stay Substantial Risk for: harm to self, inability to function and rapid decompensation Time Spent With Patient Time: Total time managing care of this patient today ____ minutes.
[2022-09-30 18:00] VITALS: PULSE 80; RESP 16; TEMP 36.4; O2SAT 93
[2022-09-30] MEDS: Melatonin 3 MG TABLET 9 MG PO (20:08)
[2022-09-30] MEDS: LORazepam 1 MG TABLET PO (20:09)
[2022-09-30] MEDS: QUEtiapine Fumarate 100 MG TABLET PO (20:09)
[2022-09-30] MEDS: traZODone HCL 25 MG HALFTAB PO (20:10)
[2022-09-30] MEDS: Atorvastatin Calcium 40 MG TABLET PO (20:10)
[2022-10-01 06:00] VITALS: BP 145/69; PULSE 77; RESP 18; TEMP 36.3; O2SAT 95
[2022-10-01] MEDS: Furosemide 20 MG TABLET PO (09:37)
[2022-10-01] MEDS: Sennosides/Docusate Sodium TABLET 1 TAB PO ×2 (09:37→21:15)
[2022-10-01] MEDS: Losartan Potassium 50 MG TABLET PO (09:37)
[2022-10-01] MEDS: QUEtiapine Fumarate 50 MG TABLET PO ×2 (09:37→16:14)
--- NOTE | 2022-10-01 10:17 | P.PNPSI_ITS ---
Subjective Subjective Date of Service: 10/01/22 Reason For Visit: F32.9, R41.9 Interim History: pleasant, cooperative. draws MD's attention to her coffee and water cups, noting she is in the middle of fluid consumption. no questions or concerns, denies any problems. per staff,med-compliant, no concerns. Mental Status Exam Mental Status Exam Patient Appearance: Well Grooomed and Appropriate Patient Orientation: Person and Situation Level of Consciousness: Awake and Appropriate Patient Behavior: Guarded and Passive Mood Description: Suspicious Affect Description: Constricted Patient Cognition Impaired: Yes Ability to Follow Directions: Good Speech Pattern: Clear Hallucinations: None Delusions: Not Present Thought Process: Distracted Thought Content: positive for [place] and positive for Poverty of Content Judgement: Fair Diagnostics Vital Signs (24Hr): Vital Signs - 24 hr 09/30/22 18:00 10/01/22 06:00 Temperature 97.5 F 97.3 F Pulse Rate 80 77 Respiratory Rate 16 18 Blood Pressure 145/69 H Pulse Oximetry 93 95 Oxygen Delivery Method Room Air Room Air BMI result Body Mass Index 27.1 Labs 09/24/22 07:08 Medications Medications Current Medications Acetaminophen (Acetaminophen 325 Mg Tablet) 650 mg PO Q6H PRN PRN Reason: Headache/Pain Mild Scale (1-3) Last Admin: 09/29/22 16:12 Dose: 650 mg Al Hydroxide/Mg Hydroxide (Magnesium Hydrox/Alum Hydrox 30 Ml Oral.Susp) 30 ml PO Q6H PRN PRN Reason: Heartburn/Nausea Atorvastatin Calcium (Atorvastatin Calcium 40 Mg Tablet) 40 mg PO BEDTIME [facility] Last Admin: 09/30/22 20:10 Dose: 40 mg Furosemide (Furosemide 20 Mg Tablet) 20 mg PO DAILY [facility]; Protocol Last Admin: 10/01/22 09:37 Dose: 20 mg Lorazepam (Lorazepam 1 Mg Tablet) 1 mg PO BEDTIME [facility] Last Admin: 09/30/22 20:09 Dose: 1 mg Losartan Potassium (Losartan Potassium 50 Mg Tablet) 50 mg PO DAILY [facility]; Protocol Last Admin: 10/01/22 09:37 Dose: 50 mg Magnesium Hydroxide (Milk Of Magnesia 30 Ml Oral.Susp) 30 ml PO DAILY PRN PRN Reason: Constipation Last Admin: 09/26/22 17:10 Dose: 30 ml Melatonin (Melatonin 3 Mg Tablet) 9 mg PO BEDTIME [facility] Last Admin: 09/30/22 20:08 Dose: 9 mg Quetiapine Fumarate (Quetiapine Fumarate 100 Mg Tablet) 100 mg PO BEDTIME [facility] Last Admin: 09/30/22 20:09 Dose: 100 mg Quetiapine Fumarate (Quetiapine Fumarate 50 Mg Tablet) 50 mg PO BID@0830,1630 [facility] Last Admin: 10/01/22 09:37 Dose: 50 mg Senna/Docusate Sodium (Sennosides/Docusate Sodium Tablet) 1 tab PO BID [facility] Last Admin: 10/01/22 09:37 Dose: 1 tab Trazodone HCl (Trazodone Hcl 25 Mg Halftab) 25 mg PO BEDTIME [facility] Last Admin: 09/30/22 20:10 Dose: 25 mg Allergies Allergies Allergy/AdvReac Type Severity Reaction Status Date / Time hydrochlorothiazide Allergy Unknown Unknown Verified 09/23/22 01:46 Penicillins Allergy Unknown Unknown Verified 09/23/22 01:47 sulfamethoxazole Allergy Unknown Unknown Verified 09/23/22 01:44 [From Bactrim] trimethoprim [From Bactrim] Allergy Unknown Unknown Verified 09/23/22 01:44 Assessment & Plan Assessment & Plan (1) Dementia: Status: Acute Code(s): F03.90 - Unspecified dementia, unspecified severity, without behavioral disturbance, psychotic disturbance, mood disturbance, and anxiety Plan pt is a 76 yo female on a Section 12, who lives at the chronic care facility with a history of dementia, depression and some history of suicidal gestures, CKD, GERD, osteoporosis, who presents for some increasing agitation, confusion and SI statements with staff reporting that patient is a little bit more inconsistent behaviorally and concern for UTI.? Patient is a poor historian with limited ability to engage in interview.? Patient knows her name and date of .? However when asked what year it was she said 790 and then said there was no baby doll... When asked if she had any suicidal thoughts she said yes because they are good people.. Patient continued to ramble making nonsensical statements.? -patient has dementia and is unable to participate in interview and remains on Section 12 since unable to understand CV -engineering writer's not sure what patient's baseline is however review of labs from sending facility (CBC, lytes, BUN/creatinine, UDS) are WNL including UA. -primary team to discuss with long term staff Plan: Section 12 B Q 15 minute checks Continue home medications ADD Senna for constipation Will monitor Primary team to discuss baseline with long term staff Mood disorder Plan as per Psychiatry HLD Continue statin HTN Continue furosemide Plan 1. Continue Seroquel 50 q.a.m. and 1 high p.o. q.h.s.. On 09/27 we increase Seroquel to 50 p.o. b.i.d. and 100 mg p.o. q.h.s. to target psychosis. 2. Continue with her regular medications. 3. Gather collateral information. 4. Filing for Section 7 and 8. 09/30 - 10/01 - stable, no change in mgmt Reason for continued inpatient stay Substantial Risk for: inability to function Time Spent With Patient Time: Total time managing care of this patient today ____ minutes.
[2022-10-01 18:00] VITALS: RESP 18; TEMP 36.4; O2SAT 95
[2022-10-01] MEDS: Melatonin 3 MG TABLET 9 MG PO (21:14)
[2022-10-01] MEDS: Atorvastatin Calcium 40 MG TABLET PO (21:14)
[2022-10-01] MEDS: QUEtiapine Fumarate 100 MG TABLET PO (21:14)
[2022-10-01] MEDS: traZODone HCL 25 MG HALFTAB PO (21:14)
[2022-10-01] MEDS: LORazepam 1 MG TABLET PO (21:14)
[2022-10-01] MEDS: Acetaminophen 325 MG TABLET 650 MG PO (21:24)
[2022-10-02 07:51] VITALS: BP 193/85; PULSE 68; RESP 18; TEMP 36.3; O2SAT 97
[2022-10-02] MEDS: QUEtiapine Fumarate 50 MG TABLET PO ×2 (08:30→15:20)
[2022-10-02] MEDS: Sennosides/Docusate Sodium TABLET 1 TAB PO ×2 (08:30→20:33)
[2022-10-02] MEDS: Losartan Potassium 50 MG TABLET PO (08:30)
[2022-10-02] MEDS: Furosemide 20 MG TABLET PO (08:30)
[2022-10-02] MEDS: Acetaminophen 325 MG TABLET 650 MG PO (08:38)
--- NOTE | 2022-10-02 10:04 | HO.PSYCHPN ---
Subjective Subjective Date of Service: 10/02/22 Reason For Visit: F32.9, R41.9 Subjective Notes: Section 7 and Section 8 Interim History: The nursing staff reported the patient was agitated after her shower. She slept after midnight, she remains on one-to-one for safety. The psychiatric social worker supervisor reported that the facility that house her has not contact back as yet even though that we have called several times. On interview the patient remains pleasantly confused nonsensical at times. No side effects with increased of antipsychotics last week. Mental Status Exam Mental Status Exam Patient Appearance: Well Grooomed and Appropriate Patient Orientation: Person Level of Consciousness: Disoriented and Restless Patient Behavior: Guarded and Passive Mood Description: Withdrawn Affect Description: Labile Patient Cognition Impaired: Yes Ability to Follow Directions: Good Speech Pattern: Clear Hallucinations: None Delusions: Paranoid Ideation Thought Process: Illogical and Distracted Thought Content: positive for [place] and positive for Poverty of Content Judgement: Poor Diagnostics Vital Signs (24Hr): Vital Signs - 24 hr 10/01/22 18:00 10/02/22 07:51 Temperature 97.5 F 97.3 F Pulse Rate 68 Respiratory Rate 18 18 Blood Pressure 193/85 H Pulse Oximetry 95 97 Oxygen Delivery Method Room Air Room Air BMI result Body Mass Index 27.1 Labs 09/24/22 07:08 Medications Medications Current Medications Acetaminophen (Acetaminophen 325 Mg Tablet) 650 mg PO Q6H PRN PRN Reason: Headache/Pain Mild Scale (1-3) Last Admin: 10/02/22 08:38 Dose: 650 mg Al Hydroxide/Mg Hydroxide (Magnesium Hydrox/Alum Hydrox 30 Ml Oral.Susp) 30 ml PO Q6H PRN PRN Reason: Heartburn/Nausea Atorvastatin Calcium (Atorvastatin Calcium 40 Mg Tablet) 40 mg PO BEDTIME [facility] Last Admin: 10/01/22 21:14 Dose: 40 mg Furosemide (Furosemide 20 Mg Tablet) 20 mg PO DAILY [facility]; Protocol Last Admin: 10/02/22 08:30 Dose: 20 mg Lorazepam (Lorazepam 1 Mg Tablet) 1 mg PO BEDTIME [facility] Last Admin: 10/01/22 21:14 Dose: 1 mg Losartan Potassium (Losartan Potassium 50 Mg Tablet) 50 mg PO DAILY [facility]; Protocol Last Admin: 10/02/22 08:30 Dose: 50 mg Magnesium Hydroxide (Milk Of Magnesia 30 Ml Oral.Susp) 30 ml PO DAILY PRN PRN Reason: Constipation Last Admin: 09/26/22 17:10 Dose: 30 ml Melatonin (Melatonin 3 Mg Tablet) 9 mg PO BEDTIME [facility] Last Admin: 10/01/22 21:14 Dose: 9 mg Quetiapine Fumarate (Quetiapine Fumarate 100 Mg Tablet) 100 mg PO BEDTIME [facility] Last Admin: 10/01/22 21:14 Dose: 100 mg Quetiapine Fumarate (Quetiapine Fumarate 50 Mg Tablet) 50 mg PO BID@0830,1630 [facility] Last Admin: 10/02/22 08:30 Dose: 50 mg Senna/Docusate Sodium (Sennosides/Docusate Sodium Tablet) 1 tab PO BID [facility] Last Admin: 10/02/22 08:30 Dose: 1 tab Trazodone HCl (Trazodone Hcl 25 Mg Halftab) 25 mg PO BEDTIME [facility] Last Admin: 10/01/22 21:14 Dose: 25 mg Allergies Allergies Allergy/AdvReac Type Severity Reaction Status Date / Time hydrochlorothiazide Allergy Unknown Unknown Verified 09/23/22 01:46 Penicillins Allergy Unknown Unknown Verified 09/23/22 01:47 sulfamethoxazole Allergy Unknown Unknown Verified 09/23/22 01:44 [From Bactrim] trimethoprim [From Bactrim] Allergy Unknown Unknown Verified 09/23/22 01:44 Assessment & Plan Assessment & Plan (1) Dementia: Status: Acute Code(s): F03.90 - Unspecified dementia, unspecified severity, without behavioral disturbance, psychotic disturbance, mood disturbance, and anxiety Plan pt is a 76 yo female on a Section 12, who lives at the chronic care facility with a history of dementia, depression and some history of suicidal gestures, CKD, GERD, osteoporosis, who presents for some increasing agitation, confusion and SI statements with staff reporting that patient is a little bit more inconsistent behaviorally and concern for UTI.? Patient is a poor historian with limited ability to engage in interview.? Patient knows her name and date of .? However when asked what year it was she said 790 and then said there was no baby doll... When asked if she had any suicidal thoughts she said yes because they are good people.. Patient continued to ramble making nonsensical statements.? -patient has dementia and is unable to participate in interview and remains on Section 12 since unable to understand CV -designer writer's not sure what patient's baseline is however review of labs from sending facility (CBC, lytes, BUN/creatinine, UDS) are WNL including UA. -primary team to discuss with fpc staff Plan: Section 12 B Q 15 minute checks Continue home medications ADD Senna for constipation Will monitor Primary team to discuss baseline with fpc staff Mood disorder Plan as per Psychiatry HLD Continue statin HTN Continue furosemide Plan 1. Continue Seroquel 50 q.a.m. and 1 high p.o. q.h.s.. On 09/27 we increase Seroquel to 50 p.o. b.i.d. and 100 mg p.o. q.h.s. to target psychosis. 2. Continue with her regular medications. 3. Gather collateral information. 4. Filing for Section 7 and 8. Reason for continued inpatient stay Substantial Risk for: inability to function, rapid decompensation and med/psych decompensation Time Spent With Patient Time: Total time managing care of this patient today _20___ minutes.
[2022-10-02 10:53] VITALS: BP 108/74
--- NOTE | 2022-10-02 11:57 | PC.NURSE ---
Morning bp 193/85, asymptomatic and MD Oakley notified. Recheck of bp at 1054 108/74 and MD Badillo updated.
[2022-10-02 18:00] VITALS: BP 141/72; PULSE 72; RESP 18; TEMP 36.4; O2SAT 96
[2022-10-02] MEDS: LORazepam 1 MG TABLET PO (20:33)
[2022-10-02] MEDS: Melatonin 3 MG TABLET 9 MG PO (20:33)
[2022-10-02] MEDS: traZODone HCL 25 MG HALFTAB PO (20:33)
[2022-10-02] MEDS: Atorvastatin Calcium 40 MG TABLET PO (20:33)
[2022-10-02] MEDS: QUEtiapine Fumarate 100 MG TABLET PO (20:33)
[2022-10-03] MEDS: Acetaminophen 325 MG TABLET 650 MG PO ×3 (02:11→23:52)
[2022-10-03 08:00] VITALS: BP 185/83; PULSE 76; RESP 16; TEMP 36.5; O2SAT 97
[2022-10-03] MEDS: Sennosides/Docusate Sodium TABLET 1 TAB PO ×2 (08:32→21:32)
[2022-10-03] MEDS: Furosemide 20 MG TABLET PO (08:32)
[2022-10-03] MEDS: QUEtiapine Fumarate 50 MG TABLET PO ×2 (08:32→17:18)
[2022-10-03] MEDS: Losartan Potassium 50 MG TABLET PO (08:33)
--- NOTE | 2022-10-03 11:21 | HO.PSYCHPN ---
Subjective Subjective Date of Service: 10/03/22 Reason For Visit: F32.9, R41.9 Subjective Notes: Conditional Voluntary Interim History: The nursing staff reported the patient has been irritable with care, she slept poorly on L5 4 hours last night. The high school social studies tutor reported that her daughter does not like [facility] but most likely she will be discharged this week. On interview the patient denies new symptoms I explained her that she is not sleeping so she agreed increase trazodone at night to target insomnia. She is taking several medications for sleep with limited improvement. Mental Status Exam Mental Status Exam Patient Appearance: Well Grooomed and Appropriate Patient Orientation: Person and Situation Level of Consciousness: Awake and Appropriate Patient Behavior: Guarded and Passive Mood Description: Withdrawn Affect Description: Constricted Ability to Follow Directions: Good Speech Pattern: Clear Hallucinations: None Delusions: Not Present Thought Process: Distracted and Slowed Thinking Thought Content: positive for [place], positive for [place] and positive for Thought Blocking Judgement: Poor Diagnostics Vital Signs (24Hr): Vital Signs - 24 hr 10/02/22 18:00 10/03/22 08:00 Temperature 97.6 F 97.7 F Pulse Rate 72 76 Respiratory Rate 18 16 Blood Pressure 141/72 H 185/83 H Pulse Oximetry 96 97 Oxygen Delivery Method Room Air Room Air BMI result Body Mass Index 27.1 Labs 09/24/22 07:08 Medications Medications Current Medications Acetaminophen (Acetaminophen 325 Mg Tablet) 650 mg PO Q6H PRN PRN Reason: Headache/Pain Mild Scale (1-3) Last Admin: 10/03/22 02:11 Dose: 650 mg Al Hydroxide/Mg Hydroxide (Magnesium Hydrox/Alum Hydrox 30 Ml Oral.Susp) 30 ml PO Q6H PRN PRN Reason: Heartburn/Nausea Atorvastatin Calcium (Atorvastatin Calcium 40 Mg Tablet) 40 mg PO BEDTIME [facility] Last Admin: 10/02/22 20:33 Dose: 40 mg Furosemide (Furosemide 20 Mg Tablet) 20 mg PO DAILY [facility]; Protocol Last Admin: 10/03/22 08:32 Dose: 20 mg Lorazepam (Lorazepam 1 Mg Tablet) 1 mg PO BEDTIME [facility] Last Admin: 10/02/22 20:33 Dose: 1 mg Losartan Potassium (Losartan Potassium 50 Mg Tablet) 50 mg PO DAILY [facility]; Protocol Last Admin: 10/03/22 08:33 Dose: 50 mg Magnesium Hydroxide (Milk Of Magnesia 30 Ml Oral.Susp) 30 ml PO DAILY PRN PRN Reason: Constipation Last Admin: 09/26/22 17:10 Dose: 30 ml Melatonin (Melatonin 3 Mg Tablet) 9 mg PO BEDTIME [facility] Last Admin: 10/02/22 20:33 Dose: 9 mg Quetiapine Fumarate (Quetiapine Fumarate 100 Mg Tablet) 100 mg PO BEDTIME [facility] Last Admin: 10/02/22 20:33 Dose: 100 mg Quetiapine Fumarate (Quetiapine Fumarate 50 Mg Tablet) 50 mg PO BID@0830,1630 [facility] Last Admin: 10/03/22 08:32 Dose: 50 mg Senna/Docusate Sodium (Sennosides/Docusate Sodium Tablet) 1 tab PO BID [facility] Last Admin: 10/03/22 08:32 Dose: 1 tab Trazodone HCl (Trazodone Hcl 50 Mg Tablet) 50 mg PO BEDTIME [facility] Allergies Allergies Allergy/AdvReac Type Severity Reaction Status Date / Time hydrochlorothiazide Allergy Unknown Unknown Verified 09/23/22 01:46 Penicillins Allergy Unknown Unknown Verified 09/23/22 01:47 sulfamethoxazole Allergy Unknown Unknown Verified 09/23/22 01:44 [From Bactrim] trimethoprim [From Bactrim] Allergy Unknown Unknown Verified 09/23/22 01:44 Assessment & Plan Assessment & Plan (1) Dementia: Status: Acute Code(s): F03.90 - Unspecified dementia, unspecified severity, without behavioral disturbance, psychotic disturbance, mood disturbance, and anxiety Plan pt is a 76 yo female on a Section 12, who lives at the chronic care facility with a history of dementia, depression and some history of suicidal gestures, CKD, GERD, osteoporosis, who presents for some increasing agitation, confusion and SI statements with staff reporting that patient is a little bit more inconsistent behaviorally and concern for UTI.? Patient is a poor historian with limited ability to engage in interview.? Patient knows her name and date of .? However when asked what year it was she said 790 and then said there was no baby doll... When asked if she had any suicidal thoughts she said yes because they are good people.. Patient continued to ramble making nonsensical statements.? -patient has dementia and is unable to participate in interview and remains on Section 12 since unable to understand CV -automatic typewriter inspector's not sure what patient's baseline is however review of labs from sending facility (CBC, lytes, BUN/creatinine, UDS) are WNL including UA. -primary team to discuss with alf staff Plan: Section 12 B Q 15 minute checks Continue home medications ADD Senna for constipation Will monitor Primary team to discuss baseline with alf staff Mood disorder Plan as per Psychiatry HLD Continue statin HTN Continue furosemide Plan 1. Continue Seroquel 50 q.a.m. and 1 high p.o. q.h.s.. On 09/27 we increase Seroquel to 50 p.o. b.i.d. and 100 mg p.o. q.h.s. to target psychosis. 2. Continue with her regular medications. 3. Gather collateral information. 4. Filing for Section [address] date has been pushed for next week. 5. Increase trazodone up to 50 mg p.o. q.h.s. to target insomnia. Reason for continued inpatient stay Substantial Risk for: inability to function, rapid decompensation and med/psych decompensation Time Spent With Patient Time: Total time managing care of this patient today __20__ minutes.
[2022-10-03 12:18] VITALS: BP 156/78
[2022-10-03] MEDS: Atorvastatin Calcium 40 MG TABLET PO (21:31)
[2022-10-03] MEDS: traZODone HCL 50 MG TABLET PO (21:32)
[2022-10-03] MEDS: Melatonin 3 MG TABLET 9 MG PO (21:32)
[2022-10-03] MEDS: LORazepam 1 MG TABLET PO (21:32)
[2022-10-03] MEDS: QUEtiapine Fumarate 100 MG TABLET PO (21:32)
[2022-10-04 08:50] VITALS: BP 178/84; PULSE 71; RESP 18; TEMP 36.2; O2SAT 97
[2022-10-04] MEDS: Losartan Potassium 50 MG TABLET PO (08:56)
[2022-10-04] MEDS: Furosemide 20 MG TABLET PO (08:56)
[2022-10-04] MEDS: Sennosides/Docusate Sodium TABLET 1 TAB PO ×2 (08:57→21:23)
[2022-10-04] MEDS: QUEtiapine Fumarate 50 MG TABLET PO ×2 (08:57→15:31)
[2022-10-04 09:24] VITALS: BP 146/83; PULSE 80
--- NOTE | 2022-10-04 11:32 | P.PNPSI_ITS ---
Subjective Subjective Date of Service: 10/04/22 Reason For Visit: F32.9, R41.9 Subjective Notes: Conditional Voluntary Interim History: The nursing staff reported the patient could sleep 7 hours last night, much better than the previous. The group social worker reported the patient will be discharged probably back to [facility] at the end of the week. On interview the patient remains pleasantly confused no evidence of violence. We will order blood work for tomorrow. Mental Status Exam Mental Status Exam Patient Appearance: Well Grooomed and Appropriate Patient Orientation: Person and Situation Level of Consciousness: Awake and Appropriate Patient Behavior: Guarded and Passive Mood Description: Withdrawn Affect Description: Constricted Patient Cognition Impaired: Yes Ability to Follow Directions: Good Speech Pattern: Clear Hallucinations: None Delusions: Not Present Thought Process: Distracted Thought Content: positive for [place] and positive for Circumstantial Judgement: Fair Diagnostics Vital Signs (24Hr): Vital Signs - 24 hr 10/03/22 12:18 10/04/22 08:50 10/04/22 09:24 Temperature 97.2 F Pulse Rate 71 80 Respiratory Rate 18 Blood Pressure 156/78 H 178/84 H 146/83 H Pulse Oximetry 97 BMI result Body Mass Index 27.1 Labs 09/24/22 07:08 Medications Medications Current Medications Acetaminophen (Acetaminophen 325 Mg Tablet) 650 mg PO Q6H PRN PRN Reason: Headache/Pain Mild Scale (1-3) Last Admin: 10/03/22 23:52 Dose: 650 mg Al Hydroxide/Mg Hydroxide (Magnesium Hydrox/Alum Hydrox 30 Ml Oral.Susp) 30 ml PO Q6H PRN PRN Reason: Heartburn/Nausea Atorvastatin Calcium (Atorvastatin Calcium 40 Mg Tablet) 40 mg PO BEDTIME [facility] Last Admin: 10/03/22 21:31 Dose: 40 mg Furosemide (Furosemide 20 Mg Tablet) 20 mg PO DAILY [facility]; Protocol Last Admin: 10/04/22 08:56 Dose: 20 mg Lorazepam (Lorazepam 1 Mg Tablet) 1 mg PO BEDTIME [facility] Last Admin: 10/03/22 21:32 Dose: 1 mg Losartan Potassium (Losartan Potassium 50 Mg Tablet) 50 mg PO DAILY [facility]; Protocol Last Admin: 10/04/22 08:56 Dose: 50 mg Magnesium Hydroxide (Milk Of Magnesia 30 Ml Oral.Susp) 30 ml PO DAILY PRN PRN Reason: Constipation Last Admin: 06/20/23 17:10 Dose: 30 ml Melatonin (Melatonin 3 Mg Tablet) 9 mg PO BEDTIME [facility] Last Admin: 10/03/22 21:32 Dose: 9 mg Quetiapine Fumarate (Quetiapine Fumarate 100 Mg Tablet) 100 mg PO BEDTIME [facility] Last Admin: 10/03/22 21:32 Dose: 100 mg Quetiapine Fumarate (Quetiapine Fumarate 50 Mg Tablet) 50 mg PO BID@0830,1630 [facility] Last Admin: 10/04/22 08:57 Dose: 50 mg Senna/Docusate Sodium (Sennosides/Docusate Sodium Tablet) 1 tab PO BID [facility] Last Admin: 10/04/22 08:57 Dose: 1 tab Trazodone HCl (Trazodone Hcl 50 Mg Tablet) 50 mg PO BEDTIME [facility] Last Admin: 10/03/22 21:32 Dose: 50 mg Allergies Allergies Allergy/AdvReac Type Severity Reaction Status Date / Time hydrochlorothiazide Allergy Unknown Unknown Verified 09/23/22 01:46 Penicillins Allergy Unknown Unknown Verified 09/23/22 01:47 sulfamethoxazole Allergy Unknown Unknown Verified 09/23/22 01:44 [From Bactrim] trimethoprim [From Bactrim] Allergy Unknown Unknown Verified 09/23/22 01:44 Assessment & Plan Assessment & Plan (1) Dementia: Status: Acute Code(s): F03.90 - Unspecified dementia, unspecified severity, without behavioral disturbance, psychotic disturbance, mood disturbance, and anxiety Plan pt is a 76 yo female on a Section 12, who lives at the chronic care facility with a history of dementia, depression and some history of suicidal gestures, CKD, GERD, osteoporosis, who presents for some increasing agitation, confusion and SI statements with staff reporting that patient is a little bit more inconsistent behaviorally and concern for UTI.? Patient is a poor historian with limited ability to engage in interview.? Patient knows her name and date of .? However when asked what year it was she said 790 and then said there was no baby doll... When asked if she had any suicidal thoughts she said yes because they are good people.. Patient continued to ramble making nonsensical statements.? -patient has dementia and is unable to participate in interview and remains on Section 12 since unable to understand CV -property underwriter's not sure what patient's baseline is however review of labs from sending facility (CBC, lytes, BUN/creatinine, UDS) are WNL including UA. -primary team to discuss with group home staff Plan: Section 12 B Q 15 minute checks Continue home medications ADD Senna for constipation Will monitor Primary team to discuss baseline with group home staff Mood disorder Plan as per Psychiatry HLD Continue statin HTN Continue furosemide Plan 1. Continue Seroquel 50 q.a.m. and 1 high p.o. q.h.s.. On 09/27 we increase Seroquel to 50 p.o. b.i.d. and 100 mg p.o. q.h.s. to target psychosis. 2. Continue with her regular medications. 3. Gather collateral information. 4. Filing for Section [address] date has been pushed for next week. 5. Increase trazodone up to 50 mg p.o. q.h.s. to target insomnia on October 03. Her insomnia has improved with this increase of trazodone. Reason for continued inpatient stay Substantial Risk for: inability to function, rapid decompensation and med/psych decompensation Time Spent With Patient Time: Total time managing care of this patient today __20__ minutes.
[2022-10-04 18:00] VITALS: BP 160/79; PULSE 80; RESP 16; TEMP 36.6; O2SAT 97
[2022-10-04] MEDS: Atorvastatin Calcium 40 MG TABLET PO (21:18)
[2022-10-04] MEDS: Melatonin 3 MG TABLET 9 MG PO (21:23)
[2022-10-04] MEDS: QUEtiapine Fumarate 100 MG TABLET PO (21:23)
[2022-10-04] MEDS: traZODone HCL 50 MG TABLET PO (21:23)
[2022-10-04] MEDS: LORazepam 1 MG TABLET PO (21:23)
[2022-10-05 07:00] VITALS: BMI 28.0
[2022-10-05 09:00] VITALS: BP 154/77; PULSE 78; RESP 18; TEMP 35.9
[2022-10-05 09:11] LABS: MANUAL DIFF FLAG NO
[2022-10-05 09:16] LABS: Basophils Percent Auto 0.7 % (0-2); Eosinophils Absolute Auto 0.2 X10*3/uL (0.0-0.4); Eosinophils Percent Auto 3.5 % (0-4); Hematocrit 41.7 % (37.0-47.0); Imm Gran Abs Auto 0.03 X10*3/uL (0.00-0.03); Imm Gran Pct Auto 0.6 % (0.0-0.4); Lymphocytes Absolute Auto 1.5 X10*3/uL (1.2-4.9); Mean Corpuscular HGB Conc 33.6 g/dl (31.0-35.0); Mean Corpuscular Volume 92.3 fL (80.0-98.0); Mean Platelet Volume 9.4 fL (9.4-12.3); Monocytes Absolute Auto 0.5 X10*3/uL (0.1-1.2); Neutrophils Absolute Auto 3.2 x10*3/uL (2.0-8.3); Neutrophils Percent Auto 59.2 % (45-73); Platelet Count 187 X10*3/uL (160-400); Red Blood Count 4.52 X10*6/uL (4.20-5.50); Red Cell Distribution Width 13.2 % (11.0-16.0); White Blood Count 5.4 X10*3/uL (4.8-10.8)
[2022-10-05 09:37] LABS: Estimated Average Glucose 100 mg/dL; Hemoglobin A1c % 5.1 %
[2022-10-05] MEDS: Memantine HCl 5 MG TABLET PO (09:50)
[2022-10-05] MEDS: Losartan Potassium 50 MG TABLET PO (09:50)
[2022-10-05] MEDS: QUEtiapine Fumarate 50 MG TABLET PO ×2 (09:50→15:37)
[2022-10-05] MEDS: Sennosides/Docusate Sodium TABLET 1 TAB PO ×2 (09:51→20:57)
[2022-10-05] MEDS: Furosemide 20 MG TABLET PO (09:51)
[2022-10-05 09:54] LABS: Anion Gap 12 (12-20); Blood Urea Nitrogen 18 mg/dL (9-16); Carbon Dioxide 21 mmol/L (22-29); Chloride 113 mmol/L (96-108); Creatinine Clr Calc Pharmacy 54.1; Estimated Glomerular Filt Rate > 60; Glucose Random 105 mg/dL (60-115); Sodium 142 mmol/L (135-145)
[2022-10-05 10:14] LABS: Thyroid Stimulating Hormone 1.85 uIU/mL (0.32-4.0)
--- NOTE | 2022-10-05 14:27 | HO.PSYCHPN ---
Subjective Subjective Date of Service: 10/05/22 Reason For Visit: F32.9, R41.9 Subjective Notes: Section 7 and Section 8 Interim History: The care home reported the patient had been intrusive at times wondering but easily redirectable. The web content & social media manager reported that [facility] probably will take her next Sunday. On interview the patient denies new symptoms she looks confused, she agreed to start Namenda 5 mg p.o. q.h.s. to target dementia. Mental Status Exam Mental Status Exam Patient Appearance: Appropriate Patient Orientation: Person and Situation Level of Consciousness: Awake and Appropriate Patient Behavior: Guarded and Passive Mood Description: Withdrawn Affect Description: Constricted Patient Cognition Impaired: Yes Ability to Follow Directions: Good Speech Pattern: Clear Hallucinations: None Delusions: Not Present Thought Process: Distracted and Linear Thought Content: positive for [place] Judgement: Poor Diagnostics Vital Signs (24Hr): Vital Signs - 24 hr 10/04/22 18:00 Temperature 97.8 F Pulse Rate 80 Respiratory Rate 16 Blood Pressure 160/79 H Pulse Oximetry 97 Oxygen Delivery Method Room Air BMI result Body Mass Index 27.1 Labs 10/05/22 08:38 10/05/22 08:38 Labs: Laboratory Results - last 48 hr 10/05/22 10/05/22 10/05/22 08:38 08:38 08:38 WBC 5.4 RBC 4.52 Hgb 14.0 Hct 41.7 MCV 92.3 MCH 31.0 MCHC 33.6 RDW 13.2 Plt Count 187 MPV 9.4 Immature Gran % (Auto) 0.6 H Neut % (Auto) 59.2 Lymph % (Auto) 27.0 [place] % (Auto) 9.0 Eos % (Auto) 3.5 Baso % (Auto) 0.7 Lymph # (Auto) 1.5 [place] # (Auto) 0.5 Eos # (Auto) 0.2 Baso # (Auto) 0.0 Abs Immat Gran (auto) 0.03 Absolute Neuts (auto) 3.2 Absolute Nucleated RBC 0.000 Nucleated RBC % (auto) 0.0 Sodium 142 Potassium 4.0 Chloride 113 H Carbon Dioxide 21 L Anion Gap 12 BUN 18 H Creatinine 0.72 Estim Creat Clear Calc 54.1 Estimated GFR > 60 Random Glucose 105 Estimat Average Glucose 100 Hemoglobin A1c % 5.1 Calcium 10.0 TSH 1.85 Medications Medications Current Medications Acetaminophen (Acetaminophen 325 Mg Tablet) 650 mg PO Q6H PRN PRN Reason: Headache/Pain Mild Scale (1-3) Last Admin: 10/03/22 23:52 Dose: 650 mg Al Hydroxide/Mg Hydroxide (Magnesium Hydrox/Alum Hydrox 30 Ml Oral.Susp) 30 ml PO Q6H PRN PRN Reason: Heartburn/Nausea Atorvastatin Calcium (Atorvastatin Calcium 40 Mg Tablet) 40 mg PO BEDTIME [facility] Last Admin: 10/04/22 21:18 Dose: 40 mg Furosemide (Furosemide 20 Mg Tablet) 20 mg PO DAILY [facility]; Protocol Last Admin: 10/05/22 09:51 Dose: 20 mg Lorazepam (Lorazepam 1 Mg Tablet) 1 mg PO BEDTIME [facility] Last Admin: 10/04/22 21:23 Dose: 1 mg Losartan Potassium (Losartan Potassium 50 Mg Tablet) 50 mg PO DAILY [facility]; Protocol Last Admin: 10/05/22 09:50 Dose: 50 mg Magnesium Hydroxide (Milk Of Magnesia 30 Ml Oral.Susp) 30 ml PO DAILY PRN PRN Reason: Constipation Last Admin: 09/26/22 17:10 Dose: 30 ml Melatonin (Melatonin 3 Mg Tablet) 9 mg PO BEDTIME [facility] Last Admin: 10/04/22 21:23 Dose: 9 mg Quetiapine Fumarate (Quetiapine Fumarate 100 Mg Tablet) 100 mg PO BEDTIME [facility] Last Admin: 10/04/22 21:23 Dose: 100 mg Quetiapine Fumarate (Quetiapine Fumarate 50 Mg Tablet) 50 mg PO BID@0830,1630 [facility] Last Admin: 10/05/22 09:50 Dose: 50 mg Senna/Docusate Sodium (Sennosides/Docusate Sodium Tablet) 1 tab PO BID [facility] Last Admin: 10/05/22 09:51 Dose: 1 tab Trazodone HCl (Trazodone Hcl 50 Mg Tablet) 50 mg PO BEDTIME [facility] Last Admin: 10/04/22 21:23 Dose: 50 mg Allergies Allergies Allergy/AdvReac Type Severity Reaction Status Date / Time hydrochlorothiazide Allergy Unknown Unknown Verified 09/23/22 01:46 Penicillins Allergy Unknown Unknown Verified 09/23/22 01:47 sulfamethoxazole Allergy Unknown Unknown Verified 09/23/22 01:44 [From Bactrim] trimethoprim [From Bactrim] Allergy Unknown Unknown Verified 09/23/22 01:44 Assessment & Plan Assessment & Plan (1) Dementia: Status: Acute Code(s): F03.90 - Unspecified dementia, unspecified severity, without behavioral disturbance, psychotic disturbance, mood disturbance, and anxiety Plan pt is a 76 yo female on a Section 12, who lives at the chronic care facility with a history of dementia, depression and some history of suicidal gestures, CKD, GERD, osteoporosis, who presents for some increasing agitation, confusion and SI statements with staff reporting that patient is a little bit more inconsistent behaviorally and concern for UTI.? Patient is a poor historian with limited ability to engage in interview.? Patient knows her name and date of .? However when asked what year it was she said 790 and then said there was no baby doll... When asked if she had any suicidal thoughts she said yes because they are good people.. Patient continued to ramble making nonsensical statements.? -patient has dementia and is unable to participate in interview and remains on Section 12 since unable to understand CV -copywriter's not sure what patient's baseline is however review of labs from sending facility (CBC, lytes, BUN/creatinine, UDS) are WNL including UA. -primary team to discuss with care home staff Plan: Section 12 B Q 15 minute checks Continue home medications ADD Senna for constipation Will monitor Primary team to discuss baseline with care home staff Mood disorder Plan as per Psychiatry HLD Continue statin HTN Continue furosemide Plan 1. Continue Seroquel 50 q.a.m. and 1 high p.o. q.h.s.. On 09/27 we increase Seroquel to 50 p.o. b.i.d. and 100 mg p.o. q.h.s. to target psychosis. 2. Continue with her regular medications. 3. Gather collateral information. 4. Filing for Section [address] date has been pushed for next week. 5. Increase trazodone up to 50 mg p.o. q.h.s. to target insomnia on October 03. Her insomnia has improved with this increase of trazodone. Reason for continued inpatient stay Substantial Risk for: inability to function, rapid decompensation and med/psych decompensation Time Spent With Patient Time: Total time managing care of this patient today ___20_ minutes.
[2022-10-05] MEDS: Atorvastatin Calcium 40 MG TABLET PO (20:57)
[2022-10-05] MEDS: Melatonin 3 MG TABLET 9 MG PO (20:57)
[2022-10-05] MEDS: LORazepam 1 MG TABLET PO (20:57)
[2022-10-05] MEDS: traZODone HCL 50 MG TABLET PO (20:58)
[2022-10-05] MEDS: QUEtiapine Fumarate 100 MG TABLET PO (20:58)
[2022-10-06 08:48] VITALS: BP 168/91; PULSE 75; RESP 18; TEMP 36.4; O2SAT 94
[2022-10-06] MEDS: Losartan Potassium 50 MG TABLET PO (08:54)
[2022-10-06] MEDS: Furosemide 20 MG TABLET PO (08:55)
[2022-10-06] MEDS: Sennosides/Docusate Sodium TABLET 1 TAB PO ×2 (08:55→21:21)
[2022-10-06] MEDS: QUEtiapine Fumarate 50 MG TABLET PO ×2 (08:55→16:01)
--- NOTE | 2022-10-06 09:30 | HO.PSYCHPN ---
Subjective Subjective Date of Service: 10/06/22 Reason For Visit: F32.9, R41.9 Subjective Notes: Section 7 and Section 8 Interim History: The nursing staff reported the patient had been compliant with medication but she has been nonsensical, irritable at times but very easily redirectable. She slept well last night. The director social service reported that [facility] will [facility] her back on Sunday. The occupational therapist reported that there is some improvement on her mentation so we are going to increase Namenda to 5 mg p.o. b.i.d.. Mental Status Exam Mental Status Exam Patient Appearance: Appropriate Patient Orientation: Person and Situation Level of Consciousness: Awake and Appropriate Patient Behavior: Guarded and Passive Mood Description: Withdrawn Affect Description: Constricted Patient Cognition Impaired: Yes Ability to Follow Directions: Good Speech Pattern: Clear Hallucinations: None Delusions: Not Present Thought Process: Distracted and Slowed Thinking Thought Content: positive for [place], positive for Poverty of Content and positive for Thought Blocking Judgement: Poor Diagnostics Vital Signs (24Hr): Vital Signs - 24 hr 10/06/22 08:48 Temperature 97.5 F Pulse Rate 75 Respiratory Rate 18 Blood Pressure 168/91 H Pulse Oximetry 94 Oxygen Delivery Method Room Air BMI result Body Mass Index 28.0 Labs 10/05/22 08:38 10/05/22 08:38 Labs: Laboratory Results - last 48 hr 10/05/22 10/05/22 10/05/22 08:38 08:38 08:38 WBC 5.4 RBC 4.52 Hgb 14.0 Hct 41.7 MCV 92.3 MCH 31.0 MCHC 33.6 RDW 13.2 Plt Count 187 MPV 9.4 Immature Gran % (Auto) 0.6 H Neut % (Auto) 59.2 Lymph % (Auto) 27.0 [place] % (Auto) 9.0 Eos % (Auto) 3.5 Baso % (Auto) 0.7 Lymph # (Auto) 1.5 [place] # (Auto) 0.5 Eos # (Auto) 0.2 Baso # (Auto) 0.0 Abs Immat Gran (auto) 0.03 Absolute Neuts (auto) 3.2 Absolute Nucleated RBC 0.000 Nucleated RBC % (auto) 0.0 Sodium 142 Potassium 4.0 Chloride 113 H Carbon Dioxide 21 L Anion Gap 12 BUN 18 H Creatinine 0.72 Estim Creat Clear Calc 54.1 Estimated GFR > 60 Random Glucose 105 Estimat Average Glucose 100 Hemoglobin A1c % 5.1 Calcium 10.0 TSH 1.85 Medications Medications Current Medications Acetaminophen (Acetaminophen 325 Mg Tablet) 650 mg PO Q6H PRN PRN Reason: Headache/Pain Mild Scale (1-3) Last Admin: 10/03/22 23:52 Dose: 650 mg Al Hydroxide/Mg Hydroxide (Magnesium Hydrox/Alum Hydrox 30 Ml Oral.Susp) 30 ml PO Q6H PRN PRN Reason: Heartburn/Nausea Atorvastatin Calcium (Atorvastatin Calcium 40 Mg Tablet) 40 mg PO BEDTIME [facility] Last Admin: 10/05/22 20:57 Dose: 40 mg Furosemide (Furosemide 20 Mg Tablet) 20 mg PO DAILY [facility]; Protocol Last Admin: 10/06/22 08:55 Dose: 20 mg Lorazepam (Lorazepam 1 Mg Tablet) 1 mg PO BEDTIME [facility] Last Admin: 10/05/22 20:57 Dose: 1 mg Losartan Potassium (Losartan Potassium 50 Mg Tablet) 50 mg PO DAILY [facility]; Protocol Last Admin: 10/06/22 08:54 Dose: 50 mg Magnesium Hydroxide (Milk Of Magnesia 30 Ml Oral.Susp) 30 ml PO DAILY PRN PRN Reason: Constipation Last Admin: 09/26/22 17:10 Dose: 30 ml Melatonin (Melatonin 3 Mg Tablet) 9 mg PO BEDTIME [facility] Last Admin: 10/05/22 20:57 Dose: 9 mg Memantine (Memantine Hcl 5 Mg Tablet) 5 mg PO BID [facility] Quetiapine Fumarate (Quetiapine Fumarate 100 Mg Tablet) 100 mg PO BEDTIME [facility] Last Admin: 10/05/22 20:58 Dose: 100 mg Quetiapine Fumarate (Quetiapine Fumarate 50 Mg Tablet) 50 mg PO BID@0830,1630 [facility] Last Admin: 10/06/22 08:55 Dose: 50 mg Senna/Docusate Sodium (Sennosides/Docusate Sodium Tablet) 1 tab PO BID [facility] Last Admin: 10/06/22 08:55 Dose: 1 tab Trazodone HCl (Trazodone Hcl 50 Mg Tablet) 50 mg PO BEDTIME [facility] Last Admin: 10/05/22 20:58 Dose: 50 mg Allergies Allergies Allergy/AdvReac Type Severity Reaction Status Date / Time hydrochlorothiazide Allergy Unknown Unknown Verified 09/23/22 01:46 Penicillins Allergy Unknown Unknown Verified 09/23/22 01:47 sulfamethoxazole Allergy Unknown Unknown Verified 09/23/22 01:44 [From Bactrim] trimethoprim [From Bactrim] Allergy Unknown Unknown Verified 09/23/22 01:44 Assessment & Plan Assessment & Plan (1) Dementia: Status: Acute Code(s): F03.90 - Unspecified dementia, unspecified severity, without behavioral disturbance, psychotic disturbance, mood disturbance, and anxiety Plan pt is a 76 yo female on a Section 12, who lives at the chronic care facility with a history of dementia, depression and some history of suicidal gestures, CKD, GERD, osteoporosis, who presents for some increasing agitation, confusion and SI statements with staff reporting that patient is a little bit more inconsistent behaviorally and concern for UTI.? Patient is a poor historian with limited ability to engage in interview.? Patient knows her name and date of .? However when asked what year it was she said 790 and then said there was no baby doll... When asked if she had any suicidal thoughts she said yes because they are good people.. Patient continued to ramble making nonsensical statements.? -patient has dementia and is unable to participate in interview and remains on Section 12 since unable to understand CV -marketing underwriter's not sure what patient's baseline is however review of labs from sending facility (CBC, lytes, BUN/creatinine, UDS) are WNL including UA. -primary team to discuss with halfway staff Plan: Section 12 B Q 15 minute checks Continue home medications ADD Senna for constipation Will monitor Primary team to discuss baseline with halfway staff Mood disorder Plan as per Psychiatry HLD Continue statin HTN Continue furosemide Plan 1. Continue Seroquel 50 q.a.m. and 1 high p.o. q.h.s.. On 09/27 we increase Seroquel to 50 p.o. b.i.d. and 100 mg p.o. q.h.s. to target psychosis. 2. Continue with her regular medications. 3. Gather collateral information. 4. Filing for Section [address] date has been pushed for next week. 5. Increase trazodone up to 50 mg p.o. q.h.s. to target insomnia on October 03. Her insomnia has improved with this increase of trazodone. 6. Increase Namenda to 5 mg p.o. b.i.d. to target dementia on October 06. Reason for continued inpatient stay Substantial Risk for: inability to function, rapid decompensation and med/psych decompensation Time Spent With Patient Time: Total time managing care of this patient today _20___ minutes.
[2022-10-06] MEDS: Memantine HCl 5 MG TABLET PO ×2 (12:54→21:22)
[2022-10-06 18:00] VITALS: BP 148/99; PULSE 83; RESP 18; TEMP 36.6; O2SAT 97
[2022-10-06] MEDS: Melatonin 3 MG TABLET 9 MG PO (21:21)
[2022-10-06] MEDS: traZODone HCL 50 MG TABLET PO (21:21)
[2022-10-06] MEDS: QUEtiapine Fumarate 100 MG TABLET PO (21:21)
[2022-10-06] MEDS: LORazepam 1 MG TABLET PO (21:22)
[2022-10-06] MEDS: Atorvastatin Calcium 40 MG TABLET PO (21:22)
[2022-10-07 08:00] VITALS: BP 177/86; PULSE 69; RESP 18; TEMP 35.9; O2SAT 95
[2022-10-07] MEDS: Furosemide 20 MG TABLET PO (08:45)
[2022-10-07] MEDS: Sennosides/Docusate Sodium TABLET 1 TAB PO ×2 (08:45→21:26)
[2022-10-07] MEDS: QUEtiapine Fumarate 50 MG TABLET PO ×2 (08:45→18:19)
[2022-10-07] MEDS: Losartan Potassium 50 MG TABLET PO (08:46)
[2022-10-07] MEDS: Memantine HCl 5 MG TABLET PO ×2 (08:46→21:26)
--- NOTE | 2022-10-07 13:36 | HO.PSYCHPN ---
Subjective Subjective Date of Service: 10/07/22 Reason For Visit: F32.9, R41.9 Subjective Notes: Section 7 Interim History: Met with patient. Discussed with Nursing. Chart reviewed. Overall slept well last night and adherent with medications. Is on antihypertensive agents. Observed in the dining room utilizing a paper towel and straw to both clean the table and also try and draw/write on the paper towel with straw. Reports she wants discharge so she can eat outside of the hospital. Does endorse some paranoia regarding staff. No evidence of depression SI agitation. Medication Compliance: Yes Side effects from medications: No Attending Groups: No Review of Systems Acute medical concerns: No Review of Systems Review of Systems Yes Unobtainable due to mental status Mental Status Exam Mental Status Exam Patient Appearance: Disheveled Patient Orientation: Person and Situation Level of Consciousness: Awake and Appropriate Patient Behavior: Guarded and Passive Mood Description: Withdrawn Affect Description: Constricted Patient Cognition Impaired: Yes Ability to Follow Directions: Good Speech Pattern: Clear Hallucinations: None Delusions: Not Present Thought Process: Distracted and Slowed Thinking Thought Content: positive for [place], positive for Poverty of Content and positive for Thought Blocking Judgement: Poor Diagnostics Vital Signs (24Hr): Vital Signs - 24 hr 10/06/22 18:00 10/07/22 08:00 Temperature 97.9 F 96.7 F L Pulse Rate 83 69 Respiratory Rate 18 18 Blood Pressure 148/99 H 177/86 H Pulse Oximetry 97 95 Oxygen Delivery Method Room Air Room Air BMI result Body Mass Index 28.0 Labs 10/05/22 08:38 10/05/22 08:38 Medications Medications Current Medications Acetaminophen (Acetaminophen 325 Mg Tablet) 650 mg PO Q6H PRN PRN Reason: Headache/Pain Mild Scale (1-3) Last Admin: 10/03/22 23:52 Dose: 650 mg Al Hydroxide/Mg Hydroxide (Magnesium Hydrox/Alum Hydrox 30 Ml Oral.Susp) 30 ml PO Q6H PRN PRN Reason: Heartburn/Nausea Atorvastatin Calcium (Atorvastatin Calcium 40 Mg Tablet) 40 mg PO BEDTIME [facility] Last Admin: 10/06/22 21:22 Dose: 40 mg Furosemide (Furosemide 20 Mg Tablet) 20 mg PO DAILY [facility]; Protocol Last Admin: 10/07/22 08:45 Dose: 20 mg Losartan Potassium (Losartan Potassium 50 Mg Tablet) 50 mg PO DAILY [facility]; Protocol Last Admin: 10/07/22 08:46 Dose: 50 mg Magnesium Hydroxide (Milk Of Magnesia 30 Ml Oral.Susp) 30 ml PO DAILY PRN PRN Reason: Constipation Last Admin: 09/26/22 17:10 Dose: 30 ml Melatonin (Melatonin 3 Mg Tablet) 9 mg PO BEDTIME [facility] Last Admin: 10/06/22 21:21 Dose: 9 mg Memantine (Memantine Hcl 5 Mg Tablet) 5 mg PO BID [facility] Last Admin: 10/07/22 08:46 Dose: 5 mg Quetiapine Fumarate (Quetiapine Fumarate 100 Mg Tablet) 100 mg PO BEDTIME [facility] Last Admin: 10/06/22 21:21 Dose: 100 mg Quetiapine Fumarate (Quetiapine Fumarate 50 Mg Tablet) 50 mg PO BID@0830,1630 [facility] Last Admin: 10/07/22 08:45 Dose: 50 mg Senna/Docusate Sodium (Sennosides/Docusate Sodium Tablet) 1 tab PO BID [facility] Last Admin: 10/07/22 08:45 Dose: 1 tab Trazodone HCl (Trazodone Hcl 50 Mg Tablet) 50 mg PO BEDTIME [facility] Last Admin: 10/06/22 21:21 Dose: 50 mg Allergies Allergies Allergy/AdvReac Type Severity Reaction Status Date / Time hydrochlorothiazide Allergy Unknown Unknown Verified 09/23/22 01:46 Penicillins Allergy Unknown Unknown Verified 09/23/22 01:47 sulfamethoxazole Allergy Unknown Unknown Verified 09/23/22 01:44 [From Bactrim] trimethoprim [From Bactrim] Allergy Unknown Unknown Verified 09/23/22 01:44 Assessment & Plan Assessment & Plan (1) Dementia: Status: Acute Code(s): F03.90 - Unspecified dementia, unspecified severity, without behavioral disturbance, psychotic disturbance, mood disturbance, and anxiety Plan pt is a 76 yo female on a Section 12, who lives at the chronic care facility with a history of dementia, depression and some history of suicidal gestures, CKD, GERD, osteoporosis, who presents for some increasing agitation, confusion and SI statements with staff reporting that patient is a little bit more inconsistent behaviorally and concern for UTI.? Patient is a poor historian with limited ability to engage in interview.? Patient knows her name and date of .? However when asked what year it was she said 790 and then said there was no baby doll... When asked if she had any suicidal thoughts she said yes because they are good people.. Patient continued to ramble making nonsensical statements.? -patient has dementia and is unable to participate in interview and remains on Section 12 since unable to understand CV -fha underwriter's not sure what patient's baseline is however review of labs from sending facility (CBC, lytes, BUN/creatinine, UDS) are WNL including UA. -primary team to discuss with shelter staff Plan: Section 12 B Q 15 minute checks Continue home medications ADD Senna for constipation Will monitor Primary team to discuss baseline with shelter staff Mood disorder Plan as per Psychiatry HLD Continue statin HTN Continue furosemide Plan 1. Continue Seroquel 50 q.a.m. and 1 high p.o. q.h.s.. On 09/27 we increase Seroquel to 50 p.o. b.i.d. and 100 mg p.o. q.h.s. to target psychosis. 2. Continue with her regular medications. 3. Gather collateral information. 4. Filing for Section [address] date has been pushed for next week. 5. Increase trazodone up to 50 mg p.o. q.h.s. to target insomnia on October 03. Her insomnia has improved with this increase of trazodone. 6. Increase Namenda to 5 mg p.o. b.i.d. to target dementia on October 06. 10/07/2022: No changes to current plan Reason for continued inpatient stay Substantial Risk for: inability to function Time Spent With Patient Time: Total time managing care of this patient today ____ minutes.
[2022-10-07 18:00] VITALS: BP 138/83; PULSE 84; RESP 18; TEMP 36.3; O2SAT 97
[2022-10-07] MEDS: QUEtiapine Fumarate 100 MG TABLET PO (21:26)
[2022-10-07] MEDS: traZODone HCL 50 MG TABLET PO (21:26)
[2022-10-07] MEDS: Atorvastatin Calcium 40 MG TABLET PO (21:26)
[2022-10-07] MEDS: Melatonin 3 MG TABLET 9 MG PO (21:26)
[2022-10-08 07:30] VITALS: PULSE 81; RESP 16; TEMP 36.6; O2SAT 95
[2022-10-08] MEDS: QUEtiapine Fumarate 50 MG TABLET PO ×2 (08:46→15:56)
[2022-10-08] MEDS: Sennosides/Docusate Sodium TABLET 1 TAB PO ×2 (08:46→20:54)
[2022-10-08] MEDS: Furosemide 20 MG TABLET PO (08:46)
[2022-10-08] MEDS: Losartan Potassium 50 MG TABLET PO (08:46)
[2022-10-08] MEDS: Memantine HCl 5 MG TABLET PO ×2 (08:46→20:54)
--- NOTE | 2022-10-08 12:27 | HO.PSYCHPN ---
Subjective Subjective Date of Service: 10/08/22 Reason For Visit: F32.9, R41.9 Subjective Notes: Section 7 Medical Problems Affecting Mental Status: No Interim History: Met with patient. Discussed with Nursing. Overall slept well last night and adherent with medications. Observed in the dining room, pleasant doing this and that . Less paranoid. Eating. Ongoing cognitive issues c/w dementia.No evidence of depression SI agitation. Medication Compliance: Yes Side effects from medications: No Attending Groups: Intermittent Review of Systems Acute medical concerns: No Review of Systems Review of Systems Yes Unobtainable due to mental status Mental Status Exam Mental Status Exam Patient Appearance: Disheveled Patient Orientation: Person and Situation Level of Consciousness: Awake and Appropriate Patient Behavior: Guarded and Passive Mood Description: Withdrawn Affect Description: Constricted Patient Cognition Impaired: Yes Ability to Follow Directions: Good Speech Pattern: Clear Diagnostics Vital Signs (24Hr): Vital Signs - 24 hr 10/07/22 18:00 10/08/22 07:30 Temperature 97.3 F 97.9 F Pulse Rate 84 81 Respiratory Rate 18 16 Blood Pressure 138/83 Pulse Oximetry 97 95 Oxygen Delivery Method Room Air Room Air BMI result Body Mass Index 28.0 Labs 10/05/22 08:38 10/05/22 08:38 Medications Medications Current Medications Acetaminophen (Acetaminophen 325 Mg Tablet) 650 mg PO Q6H PRN PRN Reason: Headache/Pain Mild Scale (1-3) Last Admin: 10/03/22 23:52 Dose: 650 mg Al Hydroxide/Mg Hydroxide (Magnesium Hydrox/Alum Hydrox 30 Ml Oral.Susp) 30 ml PO Q6H PRN PRN Reason: Heartburn/Nausea Atorvastatin Calcium (Atorvastatin Calcium 40 Mg Tablet) 40 mg PO BEDTIME [facility] Last Admin: 10/07/22 21:26 Dose: 40 mg Furosemide (Furosemide 20 Mg Tablet) 20 mg PO DAILY [facility]; Protocol Last Admin: 10/08/22 08:46 Dose: 20 mg Losartan Potassium (Losartan Potassium 50 Mg Tablet) 50 mg PO DAILY [facility]; Protocol Last Admin: 10/08/22 08:46 Dose: 50 mg Magnesium Hydroxide (Milk Of Magnesia 30 Ml Oral.Susp) 30 ml PO DAILY PRN PRN Reason: Constipation Last Admin: 09/26/22 17:10 Dose: 30 ml Melatonin (Melatonin 3 Mg Tablet) 9 mg PO BEDTIME [facility] Last Admin: 10/07/22 21:26 Dose: 9 mg Memantine (Memantine Hcl 5 Mg Tablet) 5 mg PO BID [facility] Last Admin: 10/08/22 08:46 Dose: 5 mg Quetiapine Fumarate (Quetiapine Fumarate 100 Mg Tablet) 100 mg PO BEDTIME [facility] Last Admin: 10/07/22 21:26 Dose: 100 mg Quetiapine Fumarate (Quetiapine Fumarate 50 Mg Tablet) 50 mg PO BID@0830,1630 [facility] Last Admin: 10/08/22 08:46 Dose: 50 mg Senna/Docusate Sodium (Sennosides/Docusate Sodium Tablet) 1 tab PO BID [facility] Last Admin: 10/08/22 08:46 Dose: 1 tab Trazodone HCl (Trazodone Hcl 50 Mg Tablet) 50 mg PO BEDTIME [facility] Last Admin: 10/07/22 21:26 Dose: 50 mg Allergies Allergies Allergy/AdvReac Type Severity Reaction Status Date / Time hydrochlorothiazide Allergy Unknown Unknown Verified 09/23/22 01:46 Penicillins Allergy Unknown Unknown Verified 09/23/22 01:47 sulfamethoxazole Allergy Unknown Unknown Verified 09/23/22 01:44 [From Bactrim] trimethoprim [From Bactrim] Allergy Unknown Unknown Verified 09/23/22 01:44 Assessment & Plan Assessment & Plan (1) Dementia: Status: Acute Code(s): F03.90 - Unspecified dementia, unspecified severity, without behavioral disturbance, psychotic disturbance, mood disturbance, and anxiety Plan pt is a 76 yo female on a Section 12, who lives at the chronic care facility with a history of dementia, depression and some history of suicidal gestures, CKD, GERD, osteoporosis, who presents for some increasing agitation, confusion and SI statements with staff reporting that patient is a little bit more inconsistent behaviorally and concern for UTI.? Patient is a poor historian with limited ability to engage in interview.? Patient knows her name and date of .? However when asked what year it was she said 790 and then said there was no baby doll... When asked if she had any suicidal thoughts she said yes because they are good people.. Patient continued to ramble making nonsensical statements.? 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 -primary team to discuss with retirement staff Plan: Section 12 B Q 15 minute checks Continue home medications ADD Senna for constipation Will monitor Primary team to discuss baseline with retirement staff Mood disorder Plan as per Psychiatry HLD Continue statin HTN Continue furosemide Plan 1. Continue Seroquel 50 q.a.m. and 1 high p.o. q.h.s.. On 09/27 we increase Seroquel to 50 p.o. b.i.d. and 100 mg p.o. q.h.s. to target psychosis. 2. Continue with her regular medications. 3. Gather collateral information. 4. Filing for Section [address] date has been pushed for next week. 5. Increase trazodone up to 50 mg p.o. q.h.s. to target insomnia on October 03. Her insomnia has improved with this increase of trazodone. 6. Increase Namenda to 5 mg p.o. b.i.d. to target dementia on October 06. 10/08/2022: No changes to current plan Reason for continued inpatient stay Substantial Risk for: inability to function Time Spent With Patient Time: Total time managing care of this patient today ____ minutes.
[2022-10-08 18:00] VITALS: BP 136/81; PULSE 74; RESP 18; TEMP 36.6; O2SAT 93
[2022-10-08] MEDS: Melatonin 3 MG TABLET 9 MG PO (20:53)
[2022-10-08] MEDS: Atorvastatin Calcium 40 MG TABLET PO (20:53)
[2022-10-08] MEDS: QUEtiapine Fumarate 100 MG TABLET PO (20:54)
[2022-10-08] MEDS: traZODone HCL 50 MG TABLET PO (20:54)
[2022-10-09 08:23] VITALS: BP 179/89; PULSE 76; RESP 18; TEMP 36.7
[2022-10-09] MEDS: Memantine HCl 5 MG TABLET PO (08:42)
[2022-10-09] MEDS: Sennosides/Docusate Sodium TABLET 1 TAB PO (08:42)
[2022-10-09] MEDS: Furosemide 20 MG TABLET PO (08:42)
[2022-10-09] MEDS: QUEtiapine Fumarate 50 MG TABLET PO (08:42)
[2022-10-09] MEDS: Losartan Potassium 50 MG TABLET PO (08:42)
--- NOTE | 2022-10-09 09:32 | PM.PSYDC ---
DS: Providers Provider Date of Service: 10/09/22 Date of admission: 09/23/22 00:17 Date of discharge: 10/09/22 Primary care physician: Unknown Physician Consults: 09/23/22 02:07 Consult to Hospitalist Routine Comment: Consulting Provider: Hospitalist Reason For Exam: admission physical Attending physician on discharge: Stuart Badillo DS: Diagnosis Discharge Diagnosis (1) Dementia: Status: Acute DS: Medications Discharge Medications Home Medications: Home Medications Medication Instructions Recorded Confirmed atorvastatin 40 mg tablet 40 mg QPM 09/23/22 09/23/22 furosemide 20 mg tablet 20 mg PO DAILY 09/23/22 09/23/22 lorazepam 1 mg tablet 1 mg PO BEDTIME 09/23/22 09/23/22 losartan 50 mg tablet 50 mg PO DAILY 09/23/22 09/23/22 melatonin 3 mg tablet 9 mg PO BEDTIME 09/23/22 09/23/22 quetiapine 100 mg tablet 100 mg PO BEDTIME 09/23/22 09/23/22 quetiapine 50 mg tablet 50 mg PO DAILY 09/23/22 09/23/22 trazodone 50 mg tablet 25 mg PO BEDTIME 09/23/22 09/23/22 Mental Status Exam Mental Status Exam Patient Appearance: Well Grooomed Patient Orientation: Person Level of Consciousness: Awake Patient Behavior: Cooperative and Passive Mood Description: Withdrawn Affect Description: Constricted Patient Cognition Impaired: Yes Ability to Follow Directions: Good Speech Pattern: Clear Hallucinations: None Delusions: Not Present Thought Process: Illogical and Distracted Thought Content: positive for [place], positive for Poverty of Content and positive for Thought Blocking Judgement: Fair Data Data Completed and Pending Completed studies during hospitalization [Text1]: 10/05/22 10/05/22 10/05/22 08:38 08:38 08:38 WBC 5.4 RBC 4.52 Hgb 14.0 Hct 41.7 MCV 92.3 MCH 31.0 MCHC 33.6 RDW 13.2 Plt Count 187 MPV 9.4 Immature Gran % (Auto) 0.6 H Neut % (Auto) 59.2 Lymph % (Auto) 27.0 [place] % (Auto) 9.0 Eos % (Auto) 3.5 Baso % (Auto) 0.7 Lymph # (Auto) 1.5 [place] # (Auto) 0.5 Eos # (Auto) 0.2 Baso # (Auto) 0.0 Abs Immat Gran (auto) 0.03 Absolute Neuts (auto) 3.2 Absolute Nucleated RBC 0.000 Nucleated RBC % (auto) 0.0 Sodium 142 Potassium 4.0 Chloride 113 H Carbon Dioxide 21 L Anion Gap 12 BUN 18 H Creatinine 0.72 Estim Creat Clear Calc 54.1 Estimated GFR > 60 Random Glucose 105 Estimat Average Glucose 100 Hemoglobin A1c % 5.1 Calcium 10.0 TSH 1.85 DS: Summary Hospital Course Hospital Course: The patient was initially transferred from longterm facility for agitation and altered mental status. The patient carries a diagnosis of chronic mental into illness and she has a guardian and a court order to follow treatment with antipsychotics. Please see the HPI of the admission note for further details. On intake, the patient was very confused, she was restarted on her regular medications. She was assessed by the occupational therapist and physical therapy and she follow treatment over here. At the beginning of the admission, the patient was nonsensical, with poor attention span and unable to follow a conversation. She was initially admitted on a 12 be and we needed to filed for Section 7 and 8 since there was no healthcare proxy and she was unable to take informed decisions. Eventually her court date was postponed several weeks. Eventually, the patient was treated with Seroquel and we increase slightly from 50 mg a.m. and 100 mg at night to 50 mg p.o. b.i.d. and 100 mg at night. Her thought process improved but unfortunately, she suffers from dementia. Even though that she has cognitive impairment, the patient was able to participate in select groups, she was more oriented and safe. We started her on Namenda titrated up to 5 mg p.o. b.i.d. with fair tolerance ability and some improvement of her cognition. Since there were no safety concerns discharge planning was discussed. Time spent discussing smoking cessation with patient: 3 to 10 minutes Status at Discharge Cognitive/behavioral status at discharge: Impaired at baseline Functional status at discharge: uses cane/walker Overall status at discharge: patient is back to baseline Time Spent with Patient Time attestation: Total time managing care of this patient today _30___ minutes. Time spent: Less than 30 minutes Discharge Plan Discharge Patient Disposition: [facility] Discharge Diagnosis: Dementia Psychosis Referrals: Physician,Flip J [Primary Care Provider] - 1 Week Discharge Medications: New trazodone 50 mg Tablet 50 mg PO BEDTIME 30 Days Qty: 30 0RF sennosides-docusate sodium [Senna Plus] 8.6-50 mg Tablet 1 tab PO BID Qty: 60 0RF memantine 5 mg Tablet 5 mg PO BID 30 Days Qty: 60 0RF quetiapine 50 mg Tablet 50 mg PO BID@0830,1630 30 Days Qty: 60 0RF Continued furosemide 20 mg Tablet 20 mg PO DAILY losartan 50 mg Tablet 50 mg PO DAILY melatonin 3 mg Tablet 9 mg PO BEDTIME quetiapine 100 mg Tablet 100 mg PO BEDTIME Changed atorvastatin 40 mg Tablet 40 mg PO QPM 30 Days Qty: 30 0RF Discontinued quetiapine 50 mg Tablet 50 mg PO DAILY trazodone 50 mg Tablet 25 mg PO BEDTIME lorazepam 1 mg Tablet 1 mg PO BEDTIME Discharge Orders: Discharge Order (Routine); Ordered 10/09/22 Ordered By: Stuart Badillo Diet: Advance to usual diet Activity on Discharge: As tolerated Stand Alone Forms: Patient Portal Discharge page Care Plan Goals: Care plan goals achieved in this admission Health Concerns: Continue treatment by primary care physician Plan of Treatment: Continue psychiatric treatment as an outpatient Assessment: Elderly female with a past history of dementia and psychiatric symptoms, admitted for exacerbation of agitation the responded fairly well to increased of Seroquel and the addition of Namenda to target dementia with for improvement. At this moment safe to be discharged in the community
== END 2022-10-09 10:58 | DRG 885 ==
PROVIDERS: Psychiatry & Neurology Psychiatry; Admitting Provider Psychiatry & Neurology Psychiatry; Visit Provider Psychiatry & Neurology Psychiatry
DX: F29 Unspecified psychosis not due to a substance or known physiological condition (principal); F03.911 Unspecified dementia, unspecified severity, with agitation; R45.851 Suicidal ideations; E78.5 Hyperlipidemia, unspecified; I10 Essential (primary) hypertension; Z79.899 Other long term (current) drug therapy
CPT/HCPCS: 36415; 80048; 80053; 80061; 83036; 84443; 85025